=== PATIENT | male | born 1930 | race Caucasian/White ===

== ENCOUNTER → 2016-08-12 | Outpatient (CLI) | payer MEDICARE, BC ==
[2016-08-12 15:10] LABS: Appearance,Urine Clear (Clear); Bilirubin,Urine Negative (Negative); Glucose,Urine (UA) Negative (Negative); Ketones,Urine Negative (Negative); Leukocyte Esterase,Urine Negative (Negative); Nitrite,Urine Negative (Negative); PH, Urine 5.5 (5.0-8.0); Protein,Urine Negative (Negative); Specific Gravity,Urine 1.012 (1.001-1.035); UA Billing (MACRO vs. MICRO) CHEM; Urobilinogen,Urine <2.0 mg/dL (<2.0)
[2016-08-12 15:21] LABS: Anion Gap 10 mmol/L; Blood Urea Nitrogen 33 mg/dL (9-20); Calcium 9.5 mg/dL (8.4-10.2); Carbon Dioxide 27 mmol/L (22-30); Chloride 107 mmol/L (98-107); Glucose 70 mg/dL (74-99); Iron 97 ug/dL (49-181); Non-African American GFR(MDRD) 57 (>60 ml/min/1.73 sqM); Potassium 5.8 mmol/L (3.5-5.1); Sodium 144 mmol/L (137-145)
[2016-08-12 15:23] LABS: Basophils % (A) 0 %; CH 31.2; Eosinophils # (A) 0.2 k/uL (0-0.7); Eosinophils % (A) 4 %; HDW 2.21; HGB 11.6 gm/dL (13.0-17.5); Luc # (Auto) 0.12; Luc % (Auto) 2; Lymphocytes # (A) 1.8 k/uL (1.0-4.8); Lymphocytes % (A) 34 %; MCH 30.1 pg (25.0-35.0); MCHC 30.6 g/dL (31.0-37.0); MCV 98.4 fL (80.0-100.0); Mean Platelet Volume 7.7; Monocytes # (A) 0.4 k/uL (0-1.0); Monocytes % (A) 8 %; Neutrophils # (A) 2.8 k/uL (1.3-7.7); Neutrophils % (A) 52 %; RBC 3.86 m/uL (4.30-5.90); RDW 13.9 % (11.5-15.5); WBC 5.5 k/uL (3.8-10.6)
[2016-08-12 15:30] LABS: % Iron Saturation 36.1 % (20-50); Total Iron Binding Capacity 269 ug/dL (261-462)
== END | disposition home or self-care (01) ==
LOC: LABWHC1 14:33
PROVIDERS: ATTEND Nurse Practitioner Family
DX: N18.3 Chronic kidney disease, stage 3 (moderate) (principal); D64.9 Anemia, unspecified; E21.3 Hyperparathyroidism, unspecified; E55.9 Vitamin D deficiency, unspecified; N39.0 Urinary tract infection, site not specified
CPT/HCPCS: 36415; 80048; 81003; 82306; 82728; 83540; 83550; 83970; 85025

== ENCOUNTER → 2017-02-10 | Outpatient (CLI) | payer MEDICARE, BC ==
[2017-02-10 14:27] LABS: Basophils % (A) 0 %; CH 32.3; CHCM 32.1; Eosinophils # (A) 0.2 k/uL (0-0.7); Eosinophils % (A) 3 %; HCT 36.9 % (39.0-53.0); HDW 2.19; HGB 11.8 gm/dL (13.0-17.5); Luc % (Auto) 2; Lymphocytes # (A) 1.4 k/uL (1.0-4.8); Lymphocytes % (A) 26 %; MCH 32.3 pg (25.0-35.0); MCV 101.1 fL (80.0-100.0); Macrocytosis Slight; Mean Platelet Volume 7.5; Monocytes # (A) 0.4 k/uL (0-1.0); Monocytes % (A) 7 %; Neutrophils # (A) 3.3 k/uL (1.3-7.7); Neutrophils % (A) 62 %; RBC 3.65 m/uL (4.30-5.90); RDW 13.5 % (11.5-15.5); WBC 5.3 k/uL (3.8-10.6); WBC (Perox) 5.86
[2017-02-10 14:34] LABS: Anion Gap 6 mmol/L; Blood Urea Nitrogen 28 mg/dL (9-20); Calcium 9.2 mg/dL (8.4-10.2); Carbon Dioxide 26 mmol/L (22-30); Chloride 106 mmol/L (98-107); Glucose 102 mg/dL (74-99); Iron 77 ug/dL (49-181); Magnesium 1.9 mg/dL (1.6-2.3); Non-African American GFR(MDRD) 57 (>60 ml/min/1.73 sqM); Potassium 5.1 mmol/L (3.5-5.1); Sodium 138 mmol/L (137-145)
[2017-02-10 14:39] LABS: Appearance,Urine Clear (Clear); Bilirubin,Urine Negative (Negative); Glucose,Urine (UA) Negative (Negative); Ketones,Urine Negative (Negative); Leukocyte Esterase,Urine Negative (Negative); Nitrite,Urine Negative (Negative); Protein,Urine Negative (Negative); Specific Gravity,Urine 1.013 (1.001-1.035); UA Billing (MACRO vs. MICRO) CHEM; Urobilinogen,Urine <2.0 mg/dL (<2.0)
[2017-02-10 14:43] LABS: % Iron Saturation 29.7 % (20-50); Total Iron Binding Capacity 259 ug/dL (261-462)
== END | disposition home or self-care (01) ==
LOC: LABWHC1 13:52
PROVIDERS: ATTEND Nurse Practitioner Family
DX: N18.3 Chronic kidney disease, stage 3 (moderate) (principal); D63.1 Anemia in chronic kidney disease; E55.9 Vitamin D deficiency, unspecified; E21.3 Hyperparathyroidism, unspecified; N39.0 Urinary tract infection, site not specified
CPT/HCPCS: 36415; 80048; 81003; 82306; 82728; 83540; 83550; 83735; 83970; 85025

== ENCOUNTER 2017-10-14 13:04 | Emergency (ER) | payer MEDICARE, BC ==
[2017-10-14 14:35] LABS: Basophils % (A) 1 %; Eosinophils % (A) 0 %; HGB 12.2 gm/dL (13.0-17.5); INR 1.1 (<1.2); Lymphocytes # (A) 1.1 k/uL (1.0-4.8); Lymphocytes % (A) 20 %; MCHC 33.1 g/dL (31.0-37.0); MCV 93.7 fL (80.0-100.0); Mean Platelet Volume 7.5; Monocytes # (A) 0.5 k/uL (0-1.0); Monocytes % (A) 9 %; Neutrophils # (A) 3.7 k/uL (1.3-7.7); Neutrophils % (A) 67 %; Partial Thromboplastin Time 23.3 sec (22.0-30.0); Platelet Count 132 k/uL (150-450); Prothrombin Time 10.9 sec (9.0-12.0); RBC 3.95 m/uL (4.30-5.90); RDW 13.1 % (11.5-15.5); WBC 5.5 k/uL (3.8-10.6)
[2017-10-14] MEDS ORDERED: MECLIZINE 25 MG TAB PO STA (14:41)
--- NOTE | 2017-10-14 14:43 | ED ---
General Adult HPI - General Chief complaint: Fall Stated complaint: fell 2x this week Time Seen by Provider: 10/14/17 13:45 Source: patient, RN notes reviewed Mode of arrival: ambulatory Limitations: no limitations - History of Present Illness Initial comments: This is an 87-year-old male presents emergency department stating that he's been off balance last 2 days he fell once yesterday and once today. Patient states today he fell back and hit his head and he has a little bit of a headache in the occipital region of his head. Patient denies any neck pain. Patient denies numbness weakness. Patient denies any chest pain palpitations difficulty breathing or shortness of breath. states the patient look like he was staggering when he walks. Patient denies any abdominal pain patient denies nausea vomiting diarrhea. Patient denies any history of vertigo. Patient denies any hearing loss or new ringing in the ears. Patient denies any near syncopal episodes. - Related Data Home Medications Medication Instructions Recorded Confirmed Aspirin EC [Ecotrin Low Dose] 81 mg PO DAILY 03/23/16 10/14/17 Lisinopril [Prinivil] 20 mg PO DAILY 03/23/16 10/14/17 Multivit-Min/FA/Lycopen/Lutein 1 tab PO DAILY 10/14/17 10/14/17 [Centrum Silver Men Tablet] Niacin 500 mg PO DAILY 10/14/17 10/14/17 Morrill-3 Fatty Acids [Morrill-3] 1,000 mg PO DAILY 10/14/17 10/14/17 Previous Rx's Medication Instructions Recorded Meclizine [Antivert] 25 mg PO TID #20 tab 10/14/17 Allergies Allergy/AdvReac Type Severity Reaction Status Date / Time No Known Allergies Allergy Verified 10/14/17 14:45 Review of Systems ROS Statement: Those systems with pertinent positive or pertinent negative responses have been documented in the HPI. ROS Other: All systems not noted in ROS Statement are negative. 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 Patient is nontoxic and well- hydrated and is in no acute distress. Patient has slight swelling to the occipital region of the scalp ENT: Neck is soft and supple. No significant lymphadenopathy is noted. Oropharynx is clear. Moist mucous membranes. Neck has full range of motion without eliciting any pain. EYES: The sclera were anicteric and conjunctiva were pink and moist. Extraocular movements were intact and pupils were equal round and reactive to light. Eyelids were unremarkable. PULMONARY: Unlabored respirations. Good breath sounds bilaterally. No audible rales rhonchi or wheezing was noted. CARDIOVASCULAR: There is a regular rate and rhythm without any murmurs gallops or rubs. ABDOMEN: Soft and nontender with normal bowel sounds. No palpable organomegaly was noted. There is no palpable pulsatile mass. SKIN: Skin is clear with no lesions or rashes and otherwise unremarkable. NEUROLOGIC: Patient is alert and oriented x3. Cranial nerves II through XII are grossly intact. Motor and sensory are also intact. Normal speech, volume and content. Symmetrical smile. Cerebellar exam bilaterally is normal MUSCULOSKELETAL: Normal extremities with adequate strength and full range of motion. No lower extremity swelling or edema. No calf tenderness. LYMPHATICS: No significant lymphadenopathy is noted PSYCHIATRIC: Normal psychiatric evaluation. Limitations: no limitations Course Vital Signs 10/14/17 10/14/17 13:45 15:54 Temperature 99.3 F Pulse Rate 64 53 L Respiratory 20 16 Rate Blood Pressure 130/62 137/63 O2 Sat by Pulse 98 98 Oximetry Medical Decision Making - Medical Decision Making CT of the brain and C-spine showed no acute abnormalities. Lab work was within normal limits. Patient got Antivert here and was not staggering when he walked. Patient will be sent home with some Antivert to see if this helps his symptoms and he will have close follow-up and walk with a cane were device to help him keep his balance. - Lab Data Result diagrams: 10/14/17 14:07 10/14/17 14:07 Lab Results 10/14/17 10/14/17 10/14/17 Range/Units 14:07 14:07 14:07 WBC 5.5 (3.8-10.6) k/uL RBC 3.95 L (4.30-5.90) m/uL Hgb 12.2 L (13.0-17.5) gm/dL Hct 37.0 L (39.0-53.0) % MCV 93.7 (80.0-100.0) fL MCH 31.0 (25.0-35.0) pg MCHC 33.1 (31.0-37.0) g/dL RDW 13.1 (11.5-15.5) % Plt Count 132 L (150-450) k/uL Neutrophils % 67 % Lymphocytes % 20 % Monocytes % 9 % Eosinophils % 0 % Basophils % 1 % Neutrophils # 3.7 (1.3-7.7) k/uL Lymphocytes # 1.1 (1.0-4.8) k/uL Monocytes # 0.5 (0-1.0) k/uL Eosinophils # 0.0 (0-0.7) k/uL Basophils # 0.0 (0-0.2) k/uL PT (9.0-12.0) sec INR (<1.2) APTT (22.0-30.0) sec Sodium 142 (137-145) mmol/L Potassium 4.6 (3.5-5.1) mmol/L Chloride 103 (98-107) mmol/L Carbon Dioxide 25 (22-30) mmol/L Anion Gap 14 mmol/L BUN 38 H (9-20) mg/dL Creatinine 1.40 H (0.66-1.25) mg/dL Est GFR (CKD-EPI)AfAm 52 (>60 ml/min/1.73 sqM) Est GFR (CKD-EPI)NonAf 45 (>60 ml/min/1.73 sqM) Glucose 106 H (74-99) mg/dL Calcium 9.1 (8.4-10.2) mg/dL Total Bilirubin 0.3 (0.2-1.3) mg/dL AST 51 (17-59) U/L ALT 26 (21-72) U/L Alkaline Phosphatase 58 (38-126) U/L CK-MB (CK-2) 2.8 H* (0.0-2.4) ng/mL Troponin I 0.027 (0.000-0.034) ng/mL Total Protein 6.3 (6.3-8.2) g/dL Albumin 4.0 (3.5-5.0) g/dL 10/14/17 Range/Units 14:07 WBC (3.8-10.6) k/uL RBC (4.30-5.90) m/uL Hgb (13.0-17.5) gm/dL Hct (39.0-53.0) % MCV (80.0-100.0) fL MCH (25.0-35.0) pg MCHC (31.0-37.0) g/dL RDW (11.5-15.5) % Plt Count (150-450) k/uL Neutrophils % % Lymphocytes % % Monocytes % % Eosinophils % % Basophils % % Neutrophils # (1.3-7.7) k/uL Lymphocytes # (1.0-4.8) k/uL Monocytes # (0-1.0) k/uL Eosinophils # (0-0.7) k/uL Basophils # (0-0.2) k/uL PT 10.9 (9.0-12.0) sec INR 1.1 (<1.2) APTT 23.3 (22.0-30.0) sec Sodium (137-145) mmol/L Potassium (3.5-5.1) mmol/L Chloride (98-107) mmol/L Carbon Dioxide (22-30) mmol/L Anion Gap mmol/L BUN (9-20) mg/dL Creatinine (0.66-1.25) mg/dL Est GFR (CKD-EPI)AfAm (>60 ml/min/1.73 sqM) Est GFR (CKD-EPI)NonAf (>60 ml/min/1.73 sqM) Glucose (74-99) mg/dL Calcium (8.4-10.2) mg/dL Total Bilirubin (0.2-1.3) mg/dL AST (17-59) U/L ALT (21-72) U/L Alkaline Phosphatase (38-126) U/L CK-MB (CK-2) (0.0-2.4) ng/mL Troponin I (0.000-0.034) ng/mL Total Protein (6.3-8.2) g/dL Albumin (3.5-5.0) g/dL Disposition Clinical Impression: Vertigo Disposition: HOME SELF-CARE Condition: Good Instructions: Vertigo (ED), Fall Prevention for Older Adults (ED) Prescriptions: Meclizine [Antivert] 25 mg PO TID #20 tab Referrals: Chai Castaneda MD [Primary Care Provider] - 1-2 days Time of Disposition: 16:39
[2017-10-14 14:47] LABS: Calcium 9.1 mg/dL (8.4-10.2); Potassium 4.6 mmol/L (3.5-5.1); Total Bilirubin 0.3 mg/dL (0.2-1.3); Total Protein 6.3 g/dL (6.3-8.2)
[2017-10-14 15:01] LABS: Troponin I 0.027 ng/mL (0.000-0.034)
[2017-10-14 15:02] LABS: Creatine Kinase MB 2.8 ng/mL (0.0-2.4)
--- NOTE | 2017-10-14 15:13 | XR ---
EXAMINATION TYPE: XR chest 2V DATE OF EXAM: 10/14/2017 COMPARISON: 01/04/2012 TECHNIQUE: PA and lateral views submitted. HISTORY: Pain FINDINGS: The lungs are clear and there is no pneumothorax, pleural effusion, or focal pneumonia. Hyperinflat ion suggests COPD and there are chronic rib deformity suggestive of remote trauma. Postsurgical cardi ac device noted. No overt failure. Hypertrophic change of the spine noted. IMPRESSION: 1. No acute process. Correlate for COPD.
--- NOTE | 2017-10-14 15:17 | CT ---
EXAMINATION TYPE: CT brain jaime quispe DATE OF EXAM: 10/14/2017 COMPARISON: 07/07/2015 HISTORY: Fall x2 this week CT DLP: 1325.[address] of the brain was performed. The ventricles, basal cisterns and sulci overlying the cerebral convexities demonstrate mild to moder ate enlargement. There is no evidence for intracranial hemorrhage or sulcal effacement. There is decreased attenuatio n about the periventricular white matter and deep white matter of both cerebral hemispheres, compatib le with chronic small vessel ischemia. No mass effects are seen. If symptoms persist consider MRI. Osseous calvarium is intact. IMPRESSION: 1. Age related atrophic and chronic small vessel ischemic change without acute intracranial process seen at this time. CT Cervical Spine: Unenhanced CT of the cervical spine was performed with bone and soft tissue window settings submitted . Coronal and sagittal reconstruction is obtained. There is normal alignment and prevertebral soft tissues. No evidence for acute cervical fracture . Scattered degenerative disc disease and spondylosis. Biapical scarring. IMPRESSION: 1. No evidence for acute fracture or subluxation of the cervical spine.
[2017-10-14] MEDS ORDERED: ACETAMINOPHEN TAB 500 MG TAB PO STA (16:58)
[2017-10-14 17:00] VITALS: BP 148/64; PULSE 56; RESP 17; TEMP 100.5
== END 2017-10-14 17:15 | disposition home or self-care (01) ==
LOC: EC 13:04
DX: R42 Dizziness and giddiness (principal); I10 Essential (primary) hypertension; Z95.0 Presence of cardiac pacemaker; Z79.82 Long term (current) use of aspirin; Z79.899 Other long term (current) drug therapy; Y92.009 Unspecified place in unspecified non-institutional (private) residence as the place of occurrence of the external cause
CPT/HCPCS: 36415; 70450; 71046; 72125; 80053; 82553; 83735; 84484; 85025; 85610; 85730; 93005; 99284

== ENCOUNTER → 2017-10-17 | Outpatient (CLI) | payer MEDICARE, BC ==
[2017-10-17 12:30] LABS: Basophils % (A) 0 %; Eosinophils # (A) 0.1 k/uL (0-0.7); Eosinophils % (A) 1 %; HCT 36.6 % (39.0-53.0); HGB 12.1 gm/dL (13.0-17.5); Lymphocytes # (A) 1.5 k/uL (1.0-4.8); Lymphocytes % (A) 30 %; MCH 31.1 pg (25.0-35.0); MCV 94.3 fL (80.0-100.0); Mean Platelet Volume 8.2; Monocytes # (A) 0.4 k/uL (0-1.0); Monocytes % (A) 8 %; Neutrophils # (A) 2.9 k/uL (1.3-7.7); Neutrophils % (A) 58 %; Platelet Count 110 k/uL (150-450); RBC 3.88 m/uL (4.30-5.90); WBC 4.9 k/uL (3.8-10.6)
[2017-10-17 12:35] LABS: Appearance,Urine Clear (Clear); Bilirubin,Urine Negative (Negative); Blood,Urine Negative (Negative); Color,Urine Yellow; Glucose,Urine (UA) Negative (Negative); Ketones,Urine Negative (Negative); Leukocyte Esterase,Urine Negative (Negative); Mucus,Urine Rare /hpf; Nitrite,Urine Negative (Negative); PH, Urine 5.5 (5.0-8.0); Protein,Urine 1+ (Negative); Specific Gravity,Urine 1.022 (1.001-1.035); Urobilinogen,Urine <2.0 mg/dL (<2.0); WBC,Urine 1 /hpf (0-5)
[2017-10-17 13:17] LABS: Magnesium 2.4 mg/dL (1.6-2.3); Potassium 4.9 mmol/L (3.5-5.1)
[2017-10-17 19:13] LABS: Iron Saturation 26.79 (15.00-50.00)
[2017-10-17 19:22] LABS: Vitamin D 25 Hydroxy 60.4 ng/mL (30.0-100.0)
[2017-10-17 19:37] LABS: Parathyroid Hormone Intact 52.6 pg/mL (14.0-72.0)
== END | disposition home or self-care (01) ==
LOC: LABWHC1 12:03
PROVIDERS: ATTEND Nurse Practitioner Family
DX: E55.9 Vitamin D deficiency, unspecified (principal); N39.0 Urinary tract infection, site not specified; N25.81 Secondary hyperparathyroidism of renal origin; D50.9 Iron deficiency anemia, unspecified; N18.3 Chronic kidney disease, stage 3 (moderate)
CPT/HCPCS: 36415; 80048; 81001; 82306; 82728; 83540; 83550; 83735; 83970; 85025

== ENCOUNTER → 2017-12-02 | Outpatient (CLI) | payer MEDICARE, BC ==
[2017-12-02 10:46] LABS: Appearance,Urine Clear (Clear); Bilirubin,Urine Negative (Negative); Blood,Urine Negative (Negative); Color,Urine Yellow; Glucose,Urine (UA) Negative (Negative); Ketones,Urine Negative (Negative); Leukocyte Esterase,Urine Negative (Negative); Nitrite,Urine Negative (Negative); Protein,Urine Negative (Negative); Specific Gravity,Urine 1.016 (1.001-1.035); Urobilinogen,Urine <2.0 mg/dL (<2.0)
[2017-12-02 10:49] LABS: Basophils % (A) 1 %; Eosinophils # (A) 0.2 k/uL (0-0.7); Eosinophils % (A) 4 %; HCT 36.7 % (39.0-53.0); HGB 11.9 gm/dL (13.0-17.5); Lymphocytes # (A) 1.2 k/uL (1.0-4.8); Lymphocytes % (A) 26 %; MCH 30.7 pg (25.0-35.0); MCHC 32.4 g/dL (31.0-37.0); Mean Platelet Volume 7.2; Monocytes # (A) 0.3 k/uL (0-1.0); Monocytes % (A) 7 %; Neutrophils # (A) 2.7 k/uL (1.3-7.7); Neutrophils % (A) 59 %; RBC 3.87 m/uL (4.30-5.90); RDW 13.2 % (11.5-15.5); WBC 4.6 k/uL (3.8-10.6)
[2017-12-02 10:53] LABS: Calcium 9.5 mg/dL (8.4-10.2); Magnesium 2.1 mg/dL (1.6-2.3); Phosphorus 3.4 mg/dL (2.5-4.5); Potassium 5.3 mmol/L (3.5-5.1); Uric Acid 6.8 mg/dL (3.5-8.5)
[2017-12-02 10:57] LABS: Platelet Count 170 k/uL (150-450)
[2017-12-02 16:11] LABS: Iron Saturation 30.71 (15.00-50.00)
[2017-12-02 16:21] LABS: Vitamin D 25 Hydroxy 58.2 ng/mL (30.0-100.0)
[2017-12-02 17:59] LABS: Parathyroid Hormone Intact 32.7 pg/mL (14.0-72.0)
== END | disposition home or self-care (01) ==
LOC: LABWHC1 10:01
PROVIDERS: ATTEND Internal Medicine Nephrology
DX: N39.0 Urinary tract infection, site not specified (principal); M10.9 Gout, unspecified; E83.39 Other disorders of phosphorus metabolism; E55.9 Vitamin D deficiency, unspecified; D63.1 Anemia in chronic kidney disease; N18.3 Chronic kidney disease, stage 3 (moderate)
CPT/HCPCS: 36415; 80048; 81003; 82306; 82728; 83540; 83550; 83735; 83970; 84100; 84550; 85025

== ENCOUNTER → 2018-04-17 | Outpatient (CLI) | payer MEDICARE, BC ==
[2018-04-17 13:51] LABS: Basophils % (A) 0 %; Eosinophils # (A) 0.2 k/uL (0-0.7); Eosinophils % (A) 2 %; HCT 37.4 % (39.0-53.0); HGB 11.8 gm/dL (13.0-17.5); Lymphocytes # (A) 1.3 k/uL (1.0-4.8); Lymphocytes % (A) 18 %; MCH 31.1 pg (25.0-35.0); MCHC 31.6 g/dL (31.0-37.0); MCV 98.6 fL (80.0-100.0); Mean Platelet Volume 6.8; Monocytes # (A) 0.5 k/uL (0-1.0); Monocytes % (A) 7 %; Neutrophils # (A) 5.2 k/uL (1.3-7.7); Neutrophils % (A) 71 %; Platelet Count 176 k/uL (150-450); RDW 13.3 % (11.5-15.5); WBC 7.4 k/uL (3.8-10.6)
[2018-04-17 14:07] LABS: Calcium 9.5 mg/dL (8.4-10.2); Magnesium 2.2 mg/dL (1.6-2.3); Phosphorus 3.9 mg/dL (2.5-4.5); Potassium 5.5 mmol/L (3.5-5.1); Uric Acid 6.8 mg/dL (3.5-8.5)
[2018-04-17 15:03] LABS: Appearance,Urine Clear (Clear); Bilirubin,Urine Negative (Negative); Blood,Urine Negative (Negative); Color,Urine Yellow; Glucose,Urine (UA) Negative (Negative); Ketones,Urine Negative (Negative); Leukocyte Esterase,Urine Negative (Negative); Nitrite,Urine Negative (Negative); Protein,Urine Negative (Negative); Specific Gravity,Urine 1.019 (1.001-1.035); Urobilinogen,Urine <2.0 mg/dL (<2.0)
[2018-04-17 18:10] LABS: Parathyroid Hormone Intact 47.4 pg/mL (14.0-72.0)
[2018-04-17 19:10] LABS: Iron Saturation 34.39 (15.00-50.00)
[2018-04-17 19:18] LABS: Vitamin D 25 Hydroxy 62.1 ng/mL (30.0-100.0)
== END | disposition home or self-care (01) ==
LOC: LABWHC1 12:57
PROVIDERS: ATTEND Internal Medicine Nephrology
DX: N39.0 Urinary tract infection, site not specified (principal); D63.1 Anemia in chronic kidney disease; N18.3 Chronic kidney disease, stage 3 (moderate); E55.9 Vitamin D deficiency, unspecified; E21.3 Hyperparathyroidism, unspecified; M10.9 Gout, unspecified
CPT/HCPCS: 36415; 80048; 81003; 82306; 82728; 83540; 83550; 83735; 83970; 84100; 84550; 85025

== ENCOUNTER → 2018-07-31 | Outpatient (CLI) | payer MEDICARE, BC ==
[2018-08-01 04:53] LABS: Anion Gap 7.1 mmol/L (4.00-12.00); Calcium 9.5 mg/dL (8.7-10.3); Carbon Dioxide 28.9 mmol/L (21.6-31.8); Potassium 5.3 mmol/L (3.5-5.5)
== END | disposition home or self-care (01) ==
LOC: LABWHC1 15:09
PROVIDERS: ATTEND Nurse Practitioner Family
DX: N18.3 Chronic kidney disease, stage 3 (moderate) (principal)
CPT/HCPCS: 36415; 80048

== ENCOUNTER 2018-10-03 09:17 | Inpatient (IN) | payer MEDICARE, BC ==
[2018-10-03] MEDS ORDERED: IBUPROFEN 600 MG TAB PO STA (10:01)
[2018-10-03] MEDS ORDERED: ACETAMINOPHEN IV (For NPO) 1,000 MG in EMPTY BAG 1 BAG IVPB STA (10:01)
--- NOTE | 2018-10-03 10:11 | ED ---
General Adult HPI - General Chief complaint: Fall Stated complaint: Fall Time Seen by Provider: 10/03/18 09:20 Source: patient, EMS, RN notes reviewed Mode of arrival: EMS Limitations: no limitations - History of Present Illness Initial comments: This is an 88-year-old male who presents emergency department stating that yesterday he was outside tripped and fell onto his butt. Patient states he was not injured he was able to get up and walk to the house and he felt fine. Patient states was no head injury or loss of consciousness no neck injury abelardo ent denies any extremity injury. Patient denies any injury at all. Patient states this morning he went to get out of bed and he was so weak he slid onto his butt onto the floor and was unable to get up. Patient states again there was no injury. Patient states he has just generalized weakness. Patient denies any fever chills per patient denies headache patient denies any numbness or focal weakness per patient denies any lightheadedness or near syncopal episode. Patient denies any chest pain palpitations difficulty breathing shortness of breath per patient denies any abdominal pain. Patient denies any nausea vomiting diarrhea per patient denies any dysuria hematuria urinary frequency. - Related Data Home Medications Medication Instructions Recorded Confirmed Aspirin EC [Ecotrin Low Dose] 81 mg PO DAILY 03/23/16 10/03/18 Lisinopril [Prinivil] 20 mg PO DAILY 03/23/16 10/03/18 Allergies Allergy/AdvReac Type Severity Reaction Status Date / Time No Known Allergies Allergy Verified 10/03/18 10:12 Review of Systems ROS Statement: Those systems with pertinent positive or pertinent negative responses have been documented in the HPI. ROS Other: All systems not noted in ROS Statement are negative. 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 Patient is nontoxic and well-hydrated and is in mild distress. Patient felt warm to me started his temperature is 101.5 ENT: Neck is soft and supple. No significant lymphadenopathy is noted. Oropharynx is clear. Moist mucous membranes. Neck has full range of motion without eliciting any pain. EYES: The sclera were anicteric and conjunctiva were pink and moist. Extraocular movements were intact and pupils were equal round and reactive to light. Eyelids were unremarkable. PULMONARY: Unlabored respirations. Good breath sounds bilaterally. No audible rales rhonchi or wheezing was noted. CARDIOVASCULAR: There is a regular rate and rhythm without any murmurs gallops or rubs. Femoral pulses are equal bilaterally ABDOMEN: Soft and nontender with normal bowel sounds. No palpable organomegaly was noted. There is no palpable pulsatile mass. SKIN: Skin is clear with no lesions or rashes and otherwise unremarkable. NEUROLOGIC: Patient is alert and oriented x3. Cranial nerves II through XII are grossly intact. Motor and sensory are also intact. Normal speech, volume and content. Symmetrical smile. Cerebellar exam grossly intact. MUSCULOSKELETAL: Normal extremities with adequate strength and full range of motion. No lower extremity swelling or edema. No calf tenderness. LYMPHATICS: No significant lymphadenopathy is noted PSYCHIATRIC: Normal psychiatric evaluation. Limitations: no limitations Course Vital Signs 10/03/18 10/03/18 09:23 09:53 Temperature 99.8 F H 101 F H Pulse Rate 62 Respiratory 18 Rate Blood Pressure 151/64 O2 Sat by Pulse 95 Oximetry Medical Decision Making - Medical Decision Making EKG shows normal sinus rhythm at 60 bpm TX interval is 198 QRS 146 QT interval is 48 QTC is 480. Patient's a left bundle branch block. Patient's influenza came back positive. I started the patient on Tamiflu. Patient's troponin was mildly elevated. Patient was mildly dehydrated gave the patient a fluid bolus. I spoke with Dr. Lundberg he agreed to admit the patient admitted the patient I wrote wrote admitting orders. Chest x-ray showed no acute abnormality. - Lab Data Result diagrams: 10/03/18 10:22 10/03/18 10:22 Lab Results 10/03/18 10/03/18 10/03/18 Range/Units 10:22 10:22 10:22 WBC 5.9 (3.8-10.6) k/uL RBC 3.96 L (4.30-5.90) m/uL Hgb 12.2 L (13.0-17.5) gm/dL Hct 37.7 L (39.0-53.0) % MCV 95.3 (80.0-100.0) fL MCH 30.9 (25.0-35.0) pg MCHC 32.5 (31.0-37.0) g/dL RDW 13.0 (11.5-15.5) % Plt Count 144 L (150-450) k/uL Neutrophils % 75 % Lymphocytes % 12 % Monocytes % 11 % Eosinophils % 0 % Basophils % 0 % Neutrophils # 4.4 (1.3-7.7) k/uL Lymphocytes # 0.7 L (1.0-4.8) k/uL Monocytes # 0.7 (0-1.0) k/uL Eosinophils # 0.0 (0-0.7) k/uL Basophils # 0.0 (0-0.2) k/uL PT (9.0-12.0) sec INR (<1.2) APTT (22.0-30.0) sec Sodium 136 L (137-145) mmol/L Potassium 4.5 (3.5-5.1) mmol/L Chloride 102 (98-107) mmol/L Carbon Dioxide 25 (22-30) mmol/L Anion Gap 9 mmol/L BUN 28 H (9-20) mg/dL Creatinine 1.13 (0.66-1.25) mg/dL Est GFR (CKD-EPI)AfAm 67 (>60 ml/min/1.73 sqM) Est GFR (CKD-EPI)NonAf 58 (>60 ml/min/1.73 sqM) Glucose 107 H (74-99) mg/dL Calcium 9.3 (8.4-10.2) mg/dL Total Bilirubin 0.7 (0.2-1.3) mg/dL AST 103 H (17-59) U/L ALT 48 (21-72) U/L Alkaline Phosphatase 60 (38-126) U/L Troponin I (0.000-0.034) ng/mL Total Protein 6.5 (6.3-8.2) g/dL Albumin 4.1 (3.5-5.0) g/dL Urine Color Yellow Urine Appearance Cloudy (Clear) Urine pH 5.0 (5.0-8.0) Ur Specific [place] 1.019 (1.001-1.035) Urine Protein 1+ H (Negative) Urine Glucose (UA) Negative (Negative) Urine Ketones Negative (Negative) Urine Blood Moderate H (Negative) Urine Nitrite Negative (Negative) Urine Bilirubin Negative (Negative) Urine Urobilinogen <2.0 (<2.0) mg/dL Ur Leukocyte Esterase Negative (Negative) Urine RBC 1 (0-5) /hpf Urine WBC 1 (0-5) /hpf Uric Acid Crystals Moderate H (None) /hpf Amorphous Sediment Few H (None) /hpf Urine Mucus Rare H (None) /hpf Influenza Type A RNA (Not Detectd) Influenza Type B (PCR) (Not Detectd) 10/03/18 10/03/18 10/03/18 Range/Units 10:22 10:22 10:22 WBC (3.8-10.6) k/uL RBC (4.30-5.90) m/uL Hgb (13.0-17.5) gm/dL Hct (39.0-53.0) % MCV (80.0-100.0) fL MCH (25.0-35.0) pg MCHC (31.0-37.0) g/dL RDW (11.5-15.5) % Plt Count (150-450) k/uL Neutrophils % % Lymphocytes % % Monocytes % % Eosinophils % % Basophils % % Neutrophils # (1.3-7.7) k/uL Lymphocytes # (1.0-4.8) k/uL Monocytes # (0-1.0) k/uL Eosinophils # (0-0.7) k/uL Basophils # (0-0.2) k/uL PT 11.6 (9.0-12.0) sec INR 1.1 (<1.2) APTT 22.3 (22.0-30.0) sec Sodium (137-145) mmol/L Potassium (3.5-5.1) mmol/L Chloride (98-107) mmol/L Carbon Dioxide (22-30) mmol/L Anion Gap mmol/L BUN (9-20) mg/dL Creatinine (0.66-1.25) mg/dL Est GFR (CKD-EPI)AfAm (>60 ml/min/1.73 sqM) Est GFR (CKD-EPI)NonAf (>60 ml/min/1.73 sqM) Glucose (74-99) mg/dL Calcium (8.4-10.2) mg/dL Total Bilirubin (0.2-1.3) mg/dL AST (17-59) U/L ALT (21-72) U/L Alkaline Phosphatase (38-126) U/L Troponin I 0.035 H* (0.000-0.034) ng/mL Total Protein (6.3-8.2) g/dL Albumin (3.5-5.0) g/dL Urine Color Urine Appearance (Clear) Urine pH (5.0-8.0) Ur Specific [place] (1.001-1.035) Urine Protein (Negative) Urine Glucose (UA) (Negative) Urine Ketones (Negative) Urine Blood (Negative) Urine Nitrite (Negative) Urine Bilirubin (Negative) Urine Urobilinogen (<2.0) mg/dL Ur Leukocyte Esterase (Negative) Urine RBC (0-5) /hpf Urine WBC (0-5) /hpf Uric Acid Crystals (None) /hpf Amorphous Sediment (None) /hpf Urine Mucus (None) /hpf Influenza Type A RNA Detected H (Not Detectd) Influenza Type B (PCR) Not Detected (Not Detectd) Disposition Clinical Impression: Elevated troponin, Dehydration, Influenza Disposition: ADMITTED IP TO THIS HOSP Is patient prescribed a controlled substance at d/c from ED?: No Referrals: Chai Castaneda MD [Primary Care Provider] - 1-2 days Time of Disposition: 11:53
[2018-10-03] MEDS: SODIUM CHLORIDE 0.9% 500 ML 500 ML IV SCH ×2 (10:34→12:07)
[2018-10-03 10:41] LABS: Basophils % (A) 0 %; Eosinophils % (A) 0 %; HCT 37.7 % (39.0-53.0); HGB 12.2 gm/dL (13.0-17.5); Lymphocytes # (A) 0.7 k/uL (1.0-4.8); Lymphocytes % (A) 12 %; MCH 30.9 pg (25.0-35.0); MCHC 32.5 g/dL (31.0-37.0); MCV 95.3 fL (80.0-100.0); Mean Platelet Volume 7.4; Monocytes # (A) 0.7 k/uL (0-1.0); Monocytes % (A) 11 %; Neutrophils # (A) 4.4 k/uL (1.3-7.7); Neutrophils % (A) 75 %; Platelet Count 144 k/uL (150-450); RBC 3.96 m/uL (4.30-5.90); WBC 5.9 k/uL (3.8-10.6)
[2018-10-03 10:45] LABS: INR 1.1 (<1.2); Partial Thromboplastin Time 22.3 sec (22.0-30.0); Prothrombin Time 11.6 sec (9.0-12.0)
[2018-10-03 10:54] LABS: Albumin 4.1 g/dL (3.5-5.0); Calcium 9.3 mg/dL (8.4-10.2); Potassium 4.5 mmol/L (3.5-5.1); Total Bilirubin 0.7 mg/dL (0.2-1.3); Total Protein 6.5 g/dL (6.3-8.2)
[2018-10-03 10:58] LABS: Amorphous Sediment,Urine Few /hpf; Appearance,Urine Cloudy (Clear); Bilirubin,Urine Negative (Negative); Blood,Urine Moderate (Negative); Color,Urine Yellow; Glucose,Urine (UA) Negative (Negative); Ketones,Urine Negative (Negative); Leukocyte Esterase,Urine Negative (Negative); Mucus,Urine Rare /hpf; Nitrite,Urine Negative (Negative); Protein,Urine 1+ (Negative); RBC,Urine 1 /hpf (0-5); Specific Gravity,Urine 1.019 (1.001-1.035); Uric Acid Crystals,Urine Moderate /hpf; Urobilinogen,Urine <2.0 mg/dL (<2.0); WBC,Urine 1 /hpf (0-5)
[2018-10-03] MEDS ORDERED: OSELTAMIVIR 75 MG CAP PO STA (11:40)
[2018-10-03] MEDS ORDERED: SODIUM CHLORIDE 0.9% 1,000 ML IV ONE (11:54)
--- NOTE | 2018-10-03 11:59 | XR ---
EXAMINATION TYPE: XR chest 2V DATE OF EXAM: 10/03/2018 COMPARISON: Prior chest x-ray 10/14/2017 HISTORY: Fever and weakness TECHNIQUE: Frontal and lateral views of the chest are obtained. FINDINGS: Technique somewhat expiratory. Patchy bibasilar densities present. Patient is rotated. Ther e is no pleural effusion or pneumothorax seen. The cardiac silhouette size is enlarged. The osseou s structures are intact. Coronary artery calcifications are present. The aorta is dense. Pacemaker pr esent in the left pectoral region, there are leads in the right atrium and ventricle. IMPRESSION: Probable basilar atelectasis, correlate to exclude pneumonia. Coronary artery disease, c ardiomegaly appearance could be accentuated by technique.
--- NOTE | 2018-10-03 13:52 | P.HPIM ---
History of Present Illness H&P Date: 10/03/18 Chief Complaint: Fall This is a 88-year-old male, patient of Dr. Castaneda. He has a known past medical history of hypertension , sick sinus syndrome and bradycardia with pacemaker. He presented to the emergency room after falling yesterday. Apparently he tripped and fell outside on his butt. He denies any loss of consciousness after any injury. He was able to get up and go into the house. He has felt fine. Patient reports when he woke up this morning he was more weak feeling. He tried to get out of bed and slid to the floor landing on his buttocks. He denies aga in any loss of consciousness. Patient denies any chest pain, dizziness, loss of Consciousness, shortness of breath, nausea or vomiting, bowel movement changes or urinary symptoms at any time. He does admit to having a productive cough with evidence of a fever on admission with dehydration. He had a temp of 101 BUN 28 and mildly elevated troponin of 0.035. EKG had shown normal sinus rhythm with a left bundle branch block chest x-ray showing evidence of a bilateral atelectasis. He was found to be influenza A positive and started on Tamiflu in the ER. Patient is resting comfortably in the ER. He is easily awakened and answering questions appropriately but then does fall back to sleep and states that "he is tired". Patient was also given Rocephin in the ER. urinalysis showed moderate blood with moderate uric acid crystals. Patient also given IV fluid bolus in the ER. Patient be admitted to regular medical floor for IV fluids and started on Tamiflu for his influenza infection. Review of Systems Please refer to HPI otherwise unremarkable Past Medical History Past Medical History: Hypertension Additional Past Medical History / Comment(s): SSS, bradycardia, kidney stones History of Any Multi-Drug Resistant Organisms: None Reported Past Surgical History: Adenoidectomy, Joint Replacement, Pacemaker, Tonsillectomy Additional Past Surgical History / Comment(s): NIKOLAS, left hip replacement; bilateral cataract removals with lens implants, EGD, colonoscopies Past Anesthesia/Blood Transfusion Reactions: No Reported Reaction Type of Cardiac Device: Permanent Pacemaker Device Placement Date:: 2008 Past Psychological History: No Psychological Hx Reported Additional Psychological History / Comment(s): Pt resides with his spouse, Laron. He uses no assistive device. He drives. Smoking Status: Never smoker Past Alcohol Use History: Occasional, Rare Past Drug Use History: None Reported - Past Family History Father Family Medical History: No Reported History Additional Family Medical History / Comment(s): Father was healthy and at the age of 84 yrs. Mother Family Medical History: No Reported History Additional Family Medical History / Comment(s): Mother was healthy and at the age of 88yrs Medications and Allergies Home Medications Medication Instructions Recorded Confirmed Type Aspirin EC [Ecotrin Low Dose] 81 mg PO DAILY 03/23/16 10/03/18 History Lisinopril [Prinivil] 20 mg PO DAILY 03/23/16 10/03/18 History Allergies Allergy/AdvReac Type Severity Reaction Status Date / Time No Known Allergies Allergy Verified 10/03/18 10:12 Physical Exam Vitals: Vital Signs Temp Pulse Resp BP Pulse Ox 10/03/18 13:00 49 L 18 110/48 93 L 10/03/18 12:10 98.8 F 56 L 18 117/52 96 10/03/18 09:53 101 F H 10/03/18 09:23 99.8 F H 62 18 151/64 95 Intake and Output 10/02/18 10/03/18 10/03/18 22:59 06:59 14:59 Other: Weight 73.482 kg Head normocephalic Neck supple Lungs clear to auscultation bilaterally no wheezing or crackles. Slightly diminished bilaterally Heart regular rate and rhythm S1-S2, no rub or gallop Abdomen is soft nontender nondistended positive bowel sounds no hepatosplenomegaly Extremities no edema Neuro patient is sleepy. But easily awoken and answering questions appropriately. Results CBC & Chem 7: 10/03/18 10:22 10/03/18 10:22 Labs: Abnormal Lab Results - Last 24 Hours (Table) 10/03/18 10/03/18 10/03/18 Range/Units 10:22 10:22 10:22 RBC 3.96 L (4.30-5.90) m/uL Hgb 12.2 L (13.0-17.5) gm/dL Hct 37.7 L (39.0-53.0) % Plt Count 144 L (150-450) k/uL Lymphocytes # 0.7 L (1.0-4.8) k/uL Sodium 136 L (137-145) mmol/L BUN 28 H (9-20) mg/dL Glucose 107 H (74-99) mg/dL AST 103 H (17-59) U/L Troponin I (0.000-0.034) ng/mL Urine Protein 1+ H (Negative) Urine Blood Moderate H (Negative) Uric Acid Crystals Moderate H (None) /hpf Amorphous Sediment Few H (None) /hpf Urine Mucus Rare H (None) /hpf Influenza Type A RNA (Not Detectd) 10/03/18 10/03/18 Range/Units 10:22 10:22 RBC (4.30-5.90) m/uL Hgb (13.0-17.5) gm/dL Hct (39.0-53.0) % Plt Count (150-450) k/uL Lymphocytes # (1.0-4.8) k/uL Sodium (137-145) mmol/L BUN (9-20) mg/dL Glucose (74-99) mg/dL AST (17-59) U/L Troponin I 0.035 H* (0.000-0.034) ng/mL Urine Protein (Negative) Urine Blood (Negative) Uric Acid Crystals (None) /hpf Amorphous Sediment (None) /hpf Urine Mucus (None) /hpf Influenza Type A RNA Detected H (Not Detectd) Thrombosis Risk Factor Assmnt - Choose All That Apply Any of the Below Risk Factors Present?: Yes Other Risk Factors: Yes Each Risk Factor Represents 3 Points: Age 75 years or older Other congenital or acquired thrombophilia - If yes, enter type in comment: No Thrombosis Risk Factor Assessment Total Risk Factor Score: 3 Thrombosis Risk Factor Assessment Level: Moderate Risk Assessment and Plan Assessment: 1. Generalized weakness with fall likely secondary to influenza A infection and dehydration. Lactic normal at 1.1 2. Influenza A positive: Patient started on Tamiflu 3. Dehydration likely secondary to the influenza A infection. Patient received IV fluid bolus in ER continue IV fluid hydration. BUN elevated at 28 4. Mildly elevated troponin of 0.035 possibly related to dehydration. Patient denies any chest pain. EKG normal sinus rhythm with a left bundle branch block. We'll repeat cardiac enzymes and monitor 5. Bilateral atelectasis noted on chest x-ray add incentive spirometer 6. Possible UTI await urine culture. Continue Rocephin 1 g daily 7. History of essential hypertension: We'll resume lisinopril 20 mg daily and hold for systolic blood pressure less than 120. Last BP 110/48 8. History of sick sinus syndrome and bradycardia with pacemaker 9. Elevated AST will continue with hydration and repeat labs in a.m. GI prophylaxis Protonix and DVT prophylaxis Lovenox Time with Patient: Greater than 30 (Greater than 50% of the total time spent in counseling and coordination of care.I performed an examination of the patient and discussed their management with the physician Customs Inspector. I have reviewed the Physician Customs Inspector's notes and agree with the documented findings and plan of care)
[2018-10-03] MEDS ORDERED: ONDANSETRON 4 MG/2 ML VIAL IVP PRN (13:59)
[2018-10-03 17:50] LABS: Troponin I 0.047 ng/mL (0.000-0.034)
[2018-10-03] MEDS: OSELTAMIVIR 60 MG/10 ML ORAL SYRINGE PO SCH (21:25)
[2018-10-03] MEDS: ACETAMINOPHEN TAB 325 MG TAB PO PRN (22:20)
[2018-10-03 22:57] LABS: Creatine Kinase MB 14.4 ng/mL (0.0-2.4); Troponin I 0.031 ng/mL (0.000-0.034)
[2018-10-04] MEDS: ACETAMINOPHEN TAB 325 MG TAB PO PRN ×2 (05:12→21:09)
[2018-10-04] MEDS: LISINOPRIL 20 MG TAB PO SCH (06:24)
[2018-10-04 06:55] LABS: Basophils % (A) 0 %; Eosinophils % (A) 0 %; HCT 36.6 % (39.0-53.0); HGB 11.6 gm/dL (13.0-17.5); Lymphocytes # (A) 1.3 k/uL (1.0-4.8); Lymphocytes % (A) 18 %; MCH 31.2 pg (25.0-35.0); MCHC 31.7 g/dL (31.0-37.0); MCV 98.5 fL (80.0-100.0); Mean Platelet Volume 7.5; Monocytes # (A) 0.8 k/uL (0-1.0); Monocytes % (A) 12 %; Neutrophils # (A) 4.5 k/uL (1.3-7.7); Neutrophils % (A) 66 %; Platelet Count 127 k/uL (150-450); RBC 3.71 m/uL (4.30-5.90); WBC 6.8 k/uL (3.8-10.6)
[2018-10-04 07:08] LABS: Albumin 3.2 g/dL (3.5-5.0); Calcium 8.5 mg/dL (8.4-10.2); Potassium 3.9 mmol/L (3.5-5.1); Total Bilirubin 0.4 mg/dL (0.2-1.3); Total Protein 5.4 g/dL (6.3-8.2)
[2018-10-04] MEDS: ENOXAPARIN 40 MG/0.4 ML SYRINGE SQ SCH (09:45)
[2018-10-04] MEDS: OSELTAMIVIR 60 MG/10 ML ORAL SYRINGE PO SCH ×2 (09:45→21:04)
[2018-10-04] MEDS: FAMOTIDINE 20 MG TAB PO SCH (09:46)
[2018-10-04] MEDS: ASPIRIN 81 MG PO SCH (09:52)
--- NOTE | 2018-10-04 10:28 | P.CRDCN ---
History of Present Illness Consult date: 10/04/18 Requesting physician: Tristen Lundberg Reason for Consult (text): abnormal troponin Chief complaint: fall History of present illness: This is a pleasant 88-year-old gentleman with history of hypertension, history of prior pacemaker implantation, he follows with Dr. Hai Kebede in the office. He presented to the hospital on this occasion after 2 episodes of fall. His first occasion he states he was walking down his driveway, he tripped and fell. He was able to get up and go into the house, later that evening, patient tried to get up out of his bed and again fell down, this time he states he could not get himself up. He did stay on the ground for several hours before calling the EMS in the morning. According to the patient, he denied any dizziness or lightheadedness, he did not lose consciousness. For this reason he came to the emergency room for further evaluation. Patient was found to be positive for influenza A and was started on Tamiflu on admission here. He does state that he has had a cough, nonproductive, no fever or chills at home, no body aches. Chest x-ray on admission here revealed probable basilar atelectasis, correlate to exclude pneumonia. EKG shows normal sinus rhythm with a left bundle-branch block pattern and nonspecific ST-T wave changes. Blood pressure 150/60 on arrival, heart rate in the 60s, temperature did go up to 101.0. Blood pressure this morning 185/85 heart rate in the 60s, 97% on room air, continues to have a low-grade temperature of 99.5 this morning. Laboratory data was reviewed, white blood cell count 6.8, hemoglobin 11.6 Zoltan platelet count 127. Sodium 136, potassium 3.9, BUN 33 and creatinine 1.1. CK 6400, 8383, troponin 0.035, 0.047, 0.031. At the time of my examination this morning, patient denies any chills, n o body aches, he does have a cough, nonproductive. Past Medical History Past Medical History: Hypertension Additional Past Medical History / Comment(s): SSS, bradycardia, kidney stones History of Any Multi-Drug Resistant Organisms: None Reported Past Surgical History: Adenoidectomy, Joint Replacement, Pacemaker, Tonsillectomy Additional Past Surgical History / Comment(s): NIKOLAS, left hip replacement; bilateral cataract removals with lens implants, EGD, colonoscopies Past Anesthesia/Blood Transfusion Reactions: No Reported Reaction Type of Cardiac Device: Permanent Pacemaker Device Placement Date:: 2008 Past Psychological History: No Psychological Hx Reported Additional Psychological History / Comment(s): Pt resides with his spouse, Laron. He uses no assistive device. He drives. Smoking Status: Never smoker Past Alcohol Use History: Occasional, Rare Past Drug Use History: None Reported - Past Family History Father Family Medical History: No Reported History Additional Family Medical History / Comment(s): Father was healthy and at the age of 84 yrs. Mother Family Medical History: No Reported History Additional Family Medical History / Comment(s): Mother was healthy and at the age of 88yrs Medications and Allergies Home Medications Medication Instructions Recorded Confirmed Type Aspirin EC [Ecotrin Low Dose] 81 mg PO DAILY 03/23/16 10/03/18 History Lisinopril [Prinivil] 20 mg PO DAILY 03/23/16 10/03/18 History Allergies Allergy/AdvReac Type Severity Reaction Status Date / Time No Known Allergies Allergy Verified 10/03/18 10:12 Physical Exam Vitals: Vital Signs Temp Pulse Pulse Resp BP BP Pulse Ox 10/04/18 04:00 99.5 F 65 17 185/85 97 10/03/18 23:52 60 17 10/03/18 23:48 99.6 F 60 17 160/71 95 10/03/18 20:00 98.9 F 62 17 189/79 95 10/03/18 17:00 58 L 18 155/67 98 10/03/18 16:20 49 L 16 144/55 98 10/03/18 15:00 49 L 16 128/54 95 10/03/18 14:00 49 L 18 121/57 96 10/03/18 13:00 49 L 18 110/48 93 L 10/03/18 12:10 98.8 F 56 L 18 117/52 96 Intake and Output 10/03/18 10/04/18 10/04/18 22:59 06:59 14:59 Intake Total 200 1525 Output Total 900 Balance -700 1525 Intake: Intake, IV Titration 825 Amount Sodium Chloride 0.9% 1, 825 000 ml @ 75 mls/hr IV . [id number] ONE Rx#:[id number] Oral 200 700 Output: Urine 900 Other: Voiding Method Toilet Toilet Urinal Urinal # Voids 1 1 1 Weight 74.1 kg PHYSICAL EXAMINATION: GENERAL: 88-year-old gentleman in no acute distress at the time of my examination HEENT: Head is atraumatic, normocephalic. Pupils equal, round. Sclera anicteric. Conjunctiva are clear. Mucous membranes of the mouth are moist. Neck is supple. There is no elevated jugular venous pressure. No carotid bruit is heard. HEART EXAMINATION: Heart S1, S2 normal. No murmur or gallop heard. CHEST EXAMINATION: Lungs reveal scattered rhonchi throughout. ABDOMEN: Soft, nontender. Bowel sounds are heard. No organomegaly noted. EXTREMITIES: 2+ peripheral pulses with no evidence of peripheral edema and no calf tenderness noted. NEUROLOGIC patient is awake, alert and oriented 3. . Results 10/04/18 06:14 10/04/18 06:14 Cardiac Enzymes 10/03/18 10/03/18 10/03/18 Range/Units 10:22 10:22 16:22 AST 103 H (17-59) U/L CK-MB (CK-2) 14.0 H (0.0-2.4) ng/mL Troponin I 0.035 H* 0.047 H* (0.000-0.034) ng/mL 10/03/18 10/04/18 Range/Units 21:59 06:14 AST 175 H (17-59) U/L CK-MB (CK-2) 14.4 H (0.0-2.4) ng/mL Troponin I 0.031 (0.000-0.034) ng/mL Coagulation 10/03/18 Range/Units 10:22 PT 11.6 (9.0-12.0) sec APTT 22.3 (22.0-30.0) sec CBC 10/03/18 10/04/18 Range/Units 10:22 06:14 WBC 5.9 6.8 (3.8-10.6) k/uL RBC 3.96 L 3.71 L (4.30-5.90) m/uL Hgb 12.2 L 11.6 L (13.0-17.5) gm/dL Hct 37.7 L 36.6 L (39.0-53.0) % Plt Count 144 L 127 L (150-450) k/uL Comprehensive Metabolic Panel 10/03/18 10/04/18 Range/Units 10:22 06:14 Sodium 136 L 136 L (137-145) mmol/L Potassium 4.5 3.9 (3.5-5.1) mmol/L Chloride 102 108 H (98-107) mmol/L Carbon Dioxide 25 22 (22-30) mmol/L BUN 28 H 33 H (9-20) mg/dL Creatinine 1.13 1.15 (0.66-1.25) mg/dL Glucose 107 H 85 (74-99) mg/dL Calcium 9.3 8.5 (8.4-10.2) mg/dL AST 103 H 175 H (17-59) U/L ALT 48 66 (21-72) U/L Alkaline Phosphatase 60 47 (38-126) U/L Total Protein 6.5 5.4 L (6.3-8.2) g/dL Albumin 4.1 3.2 L (3.5-5.0) g/dL Current Medications Generic Name Dose Route Start Last Admin Trade Name Freq PRN Reason Stop Dose Admin Acetaminophen 650 mg 10/03/18 11:56 10/04/18 05:12 Tylenol Tab PO 650 mg Q6HR PRN Administration Fever and/ or Pain Aspirin 81 mg 10/04/18 09:00 10/04/18 09:52 Aspirin PO 81 mg DAILY MARICRUZ Administration Enoxaparin Sodium 40 mg 10/04/18 09:00 10/04/18 09:45 Lovenox SQ 40 mg DAILY MARICRUZ Administration Famotidine 20 mg 10/04/18 09:00 10/04/18 09:46 Pepcid PO 20 mg DAILY MARICRUZ Administration Ceftriaxone Sodium 1 gm/ 50 mls @ 100 mls/hr 10/04/18 09:00 10/04/18 09:46 Sodium Chloride IVPB 100 mls/hr Q24HR MARICRUZ Administration Sodium Chloride 1,000 mls @ 100 mls/hr 10/04/18 10:00 Saline 0.9% IV .Q10H MARICRUZ Lisinopril 20 mg 10/04/18 09:00 10/04/18 06:24 Zestril PO 20 mg DAILY MARICRUZ Administration Ondansetron HCl 4 mg 10/03/18 13:59 Zofran IVP Q6HR PRN Vomiting Oseltamivir Phosphate 30 mg 10/03/18 21:00 10/04/18 09:45 Tamiflu PO 10/07/18 21:01 30 mg Q12HR MARICRUZ Administration Intake and Output 10/03/18 10/04/18 10/04/18 22:59 06:59 14:59 Intake Total 200 1525 Output Total 900 Balance -700 1525 Intake: Intake, IV Titration 825 Amount Sodium Chloride 0.9% 1, 825 000 ml @ 75 mls/hr IV . [id number] ONE Rx#:[id number] Oral 200 700 Output: Urine 900 Other: Voiding Method Toilet Toilet Urinal Urinal # Voids 1 1 1 Weight 74.1 kg 10/04/18 06:14 10/04/18 06:14 EKG Interpretations (text) EKG shows a normal sinus rhythm with a left bundle-branch block pattern and nonspecific ST-T wave changes. Assessment and Plan Plan: Assessment and plan #1 episodes of unsteadiness and fall 2 with no clear-cut syncope #2 influenza A #3 history of prior pacemaker implantation #4 bilateral atelectasis with possible pneumonia #5 hypertension, uncontrolled #6 abnormality in troponin, not consistent with acute coronary syndrome with no significant rise and fall pattern, likely secondary to sepsis Plan We will obtain an echocardiogram with Doppler study. We will also interrogate the patient's pacemaker. Continue antibiotics and Tamiflu. We will also start the patient on a beta zane along with the lisinopril he is also on to optimize blood pressure control. Further recommendations to follow. DNP note has been reviewed, I agree with a documented findings and plan of care. Patient was seen and examined.
--- NOTE | 2018-10-04 10:54 | P.PN ---
Subjective Progress Note Date: 10/04/18 This is a 88-year-old male, patient of Dr. Castaneda. He has a known past medical history of hypertension , sick sinus syndrome and bradycardia with pacemaker. He presented to the emergency room after falling yesterday. Apparently he tripped and fell outside on his butt. He denies any loss of consciousness after any injury. He was able to get up and go into the house. He has felt fine. Patient reports when he woke up this morning he was more weak feeling. He tried to get out of bed and slid to the floor landing on his buttocks. He denies again any loss of consciousness. Patient denies any chest pain, dizziness, loss of Consciousness, shortness of breath, nausea or vomiting, bowel movement c hanges or urinary symptoms at any time. He does admit to having a productive cough with evidence of a fever on admission with dehydration. He had a temp of 101 BUN 28 and mildly elevated troponin of 0.035. EKG had shown normal sinus rhythm with a left bundle branch block chest x-ray showing evidence of a bilateral atelectasis. He was found to be influenza A positive and started on Tamiflu in the ER. Patient is resting comfortably in the ER. He is easily awakened and answering questions appropriately but then does fall back to sleep and states that "he is tired". Patient was also given Rocephin in the ER. urinalysis showed moderate blood with moderate uric acid crystals. Patient also given IV fluid bolus in the ER. Patient be admitted to regular medical floor for IV fluids and started on Tamiflu for his influenza infection. On 10/04/2018 patient is alert and oriented 3. Patient reports he feels improved from yesterday. At this time patient denies chest pain or shortness br eath. Patient denies nausea vomiting or diarrhea. Patient denies any urinary burning or frequency Objective - Vital Signs Vital signs: Vital Signs Temp 99.5 F 10/04/18 04:00 Pulse 65 10/04/18 04:00 Resp 17 10/04/18 04:00 BP 185/85 10/04/18 04:00 Pulse Ox 97 10/04/18 04:00 Intake & Output 10/03/18 10/04/18 10/04/18 18:59 06:59 18:59 Intake Total 200 1525 Output Total 900 Balance -700 1525 Weight 73.482 kg 74.1 kg Intake: Intake, IV Titration 825 Amount Sodium Chloride 0.9% 1, 825 000 ml @ 75 mls/hr IV . [id number] ONE Rx#:[id number] Oral 200 700 Output: Urine 900 Other: Voiding Method Toilet Urinal # Voids 1 1 1 - Exam Head normocephalic Neck supple Lungs clear to auscultation bilaterally no wheezing or crackles. Slightly diminished bilaterally Heart regular rate and rhythm S1-S2, no rub or gallop Abdomen is soft nontender nondistended positive bowel sounds no hepatosplenomegaly Extremities no edema Neuro patient is alert and oriented 3 - Labs CBC & Chem 7: 10/04/18 06:14 10/04/18 06:14 Labs: Abnormal Lab Results - Last 24 Hours (Table) 10/03/18 10/03/18 10/03/18 Range/Units 10:22 10:22 10:22 RBC 3.96 L (4.30-5.90) m/uL Hgb 12.2 L (13.0-17.5) gm/dL Hct 37.7 L (39.0-53.0) % Plt Count 144 L (150-450) k/uL Lymphocytes # 0.7 L (1.0-4.8) k/uL Sodium 136 L (137-145) mmol/L Chloride (98-107) mmol/L BUN 28 H (9-20) mg/dL Glucose 107 H (74-99) mg/dL AST 103 H (17-59) U/L Total Creatine Kinase (55-170) U/L CK-MB (CK-2) (0.0-2.4) ng/mL Troponin I (0.000-0.034) ng/mL Total Protein (6.3-8.2) g/dL Albumin (3.5-5.0) g/dL Urine Protein 1+ H (Negative) Urine Blood Moderate H (Negative) Uric Acid Crystals Moderate H (None) /hpf Amorphous Sediment Few H (None) /hpf Urine Mucus Rare H (None) /hpf Influenza Type A RNA (Not Detectd) 10/03/18 10/03/18 10/03/18 Range/Units 10:22 10:22 16:22 RBC (4.30-5.90) m/uL Hgb (13.0-17.5) gm/dL Hct (39.0-53.0) % Plt Count (150-450) k/uL Lymphocytes # (1.0-4.8) k/uL Sodium (137-145) mmol/L Chloride (98-107) mmol/L BUN (9-20) mg/dL Glucose (74-99) mg/dL AST (17-59) U/L Total Creatine Kinase 6400 H* (55-170) U/L CK-MB (CK-2) 14.0 H (0.0-2.4) ng/mL Troponin I 0.035 H* 0.047 H* (0.000-0.034) ng/mL Total Protein (6.3-8.2) g/dL Albumin (3.5-5.0) g/dL Urine Protein (Negative) Urine Blood (Negative) Uric Acid Crystals (None) /hpf Amorphous Sediment (None) /hpf Urine Mucus (None) /hpf Influenza Type A RNA Detected H (Not Detectd) 10/03/18 10/04/18 10/04/18 Range/Units 21:59 06:14 06:14 RBC 3.71 L (4.30-5.90) m/uL Hgb 11.6 L (13.0-17.5) gm/dL Hct 36.6 L (39.0-53.0) % Plt Count 127 L (150-450) k/uL Lymphocytes # (1.0-4.8) k/uL Sodium 136 L (137-145) mmol/L Chloride 108 H (98-107) mmol/L BUN 33 H (9-20) mg/dL Glucose (74-99) mg/dL AST 175 H (17-59) U/L Total Creatine Kinase 8383 H* (55-170) U/L CK-MB (CK-2) 14.4 H (0.0-2.4) ng/mL Troponin I (0.000-0.034) ng/mL Total Protein 5.4 L (6.3-8.2) g/dL Albumin 3.2 L (3.5-5.0) g/dL Urine Protein (Negative) Urine Blood (Negative) Uric Acid Crystals (None) /hpf Amorphous Sediment (None) /hpf Urine Mucus (None) /hpf Influenza Type A RNA (Not Detectd) Microbiology - Last 24 Hours (Table) 10/03/18 10:22 Urine Culture - Preliminary Urine,Voided Assessment and Plan Assessment: 1. Generalized weakness with fall likely secondary to influenza A infection and dehydration. Lactic normal at 1.1. 2. Influenza A positive: Patient started on Tamiflu 3. Dehydration likely secondary to the influenza A infection. Patient received IV fluid bolus in ER continue IV fluid hydration. BUN elevated at 28 4. Mildly elevated troponin of 0.035 possibly related to dehydration. Patient denies any chest pain. EKG normal sinus rhythm with a left bundle branch block. We'll repeat cardiac enzymes and monitor 5. Bilateral atelectasis noted on chest x-ray add incentive spirometer 6. Possible UTI await urine culture. Continue Rocephin 1 g daily 7. Rhabdomyolysis. Total creatinine kinase elevated at 6400 and 8383 8. History of essential hypertension: We'll resume lisinopril 20 mg daily and hold for systolic blood pressure less than 120. At this time blood pressure on the higher side. Discussed with cardiology will likely add additional medication 9. History of sick sinus syndrome and bradycardia with pacemaker 10. Elevated AST will continue with hydration and repeat labs in a.m. GI prophylaxis Protonix and DVT prophylaxis Lovenox I performed an examination of the patient and discussed their management with the Nurse Practitioner. I have reviewed the Nurse Practitioner's notes and agree with the documented findings and plan of care
[2018-10-04] MEDS: SODIUM CHLORIDE 0.9% 1,000 ML IV SCH ×2 (11:54→22:58)
[2018-10-04] MEDS: METOPROLOL SUCCINATE (ER) 25 MG TAB.ER.24H PO SCH (11:59)
[2018-10-04] MEDS: guaiFENesin-Coden 100-10MG/5ML 10 ML CUP PO PRN (22:56)
[2018-10-05 02:16] VITALS: RESP 18
[2018-10-05 06:58] LABS: Basophils % (A) 0 %; Eosinophils % (A) 1 %; HCT 34.4 % (39.0-53.0); HGB 11.1 gm/dL (13.0-17.5); Lymphocytes # (A) 1.3 k/uL (1.0-4.8); Lymphocytes % (A) 30 %; MCH 31.1 pg (25.0-35.0); MCHC 32.1 g/dL (31.0-37.0); MCV 96.9 fL (80.0-100.0); Mean Platelet Volume 7.1; Monocytes # (A) 0.4 k/uL (0-1.0); Monocytes % (A) 8 %; Neutrophils # (A) 2.6 k/uL (1.3-7.7); Neutrophils % (A) 59 %; Platelet Count 140 k/uL (150-450); RBC 3.55 m/uL (4.30-5.90); RDW 12.9 % (11.5-15.5); WBC 4.3 k/uL (3.8-10.6)
[2018-10-05 07:15] LABS: Albumin 2.7 g/dL (3.5-5.0); Calcium 8.5 mg/dL (8.4-10.2); Potassium 3.7 mmol/L (3.5-5.1); Total Bilirubin 0.3 mg/dL (0.2-1.3); Total Protein 4.7 g/dL (6.3-8.2)
[2018-10-05] MEDS: SODIUM CHLORIDE 0.9% 1,000 ML IV SCH ×2 (08:23→20:40)
[2018-10-05] MEDS: guaiFENesin-Coden 100-10MG/5ML 10 ML CUP PO PRN ×3 (08:25→22:44)
[2018-10-05] MEDS: ENOXAPARIN 40 MG/0.4 ML SYRINGE SQ SCH (08:26)
[2018-10-05] MEDS: FAMOTIDINE 20 MG TAB PO SCH (08:26)
[2018-10-05] MEDS: ASPIRIN 81 MG PO SCH (08:26)
[2018-10-05] MEDS: LISINOPRIL 20 MG TAB PO SCH (08:26)
[2018-10-05] MEDS: METOPROLOL SUCCINATE (ER) 25 MG TAB.ER.24H PO SCH (08:26)
[2018-10-05] MEDS: OSELTAMIVIR 60 MG/10 ML ORAL SYRINGE PO SCH ×2 (08:28→20:40)
--- NOTE | 2018-10-05 11:07 | P.PN ---
Subjective Progress Note Date: 10/05/18 This is a 88-year-old gentleman with history of hypertension and a prior permanent pacemaker implantation who came to the hospital with 2 episodes of fall. There doesn't seem to be any loss of consciousness. There doesn't seem in any episodes of dizziness. Since admission patient was found to be positive for flu. His CPKs are elevated. His creatinine is 1.1. Troponin values were mildly elevated but not consistent with the acute myocardial injury pattern. Chest x-ray showed A. tach. This is possible pneumonia. Patient is feeling better today. Patient has been receiving IV fluids. His blood pressures have been running fairly well. There does seem to be in postural hypotension with a 20 mm drop in blood pressure. Patient is advised to have knee high stockings. We'll continue current medical therapy. Waiting for echo Doppler study. Permanent pacemaker also to be evaluated. Lab values today showed white count of 4.3. Hemoglobin is 11.1. Rectal Lites are within normal limits. His CPKs 5000. GENERAL EXAM: Patient is alert and oriented and doesn't appear to be in any acute distress HEENT: Normocephalic. Normal reaction of pupils, equal size, normal range of extraocular motion. No erythema or exudates in the throat. NECK: No masses, no nuchal rigidity. CHEST: No chest wall deformity. LUNGS: Equal air entry with no crackles or wheeze. HEART: S1 and S2 normal with no audible mumurs or gallops. Regular rhythm, femorals equal on both sides.. ABDOMEN: No hepatosplenomegaly, normal bowel sounds, no guarding or rigidity. SKIN: No rashes CENTRAL NERVOUS SYSTEM: No focal deficits. EXTREMITIES: No cyanosis, clubbing or edema. Final impression #1. Recurrent falls. Could be secondary to postural hypotension #2. Postural hypotension #3. History of permanent pacemaker impla ntation. #4. Abnormal troponin values. #5. Rhabdomyolysis. Plan continue with IV fluids.Knee high stockings. Increase activity as tolerated Objective - Vital Signs Vital signs: Vital Signs Temp 98.1 F 10/05/18 07:30 Pulse 59 L 10/05/18 10:43 Resp 18 10/05/18 07:30 BP 158/67 10/05/18 10:43 Pulse Ox 96 10/05/18 08:38 Intake & Output 10/04/18 10/05/1810/05/19 18:59 06:59 18:59 Intake Total 730 300 240 Output Total 400 950 Balance 330 -650 240 Weight 75.3 kg Intake: Intake, IV Titration 500 300 Amount Sodium Chloride 0.9% 1, 500 300 000 ml @ 100 mls/hr IV . Q10H [facility] Rx#:[id number] Oral 230 240 Output: Urine 400 950 Other: Voiding Method Toilet Urinal # Voids 1 1 - Labs CBC & Chem 7: 10/05/18 06:25 10/05/18 06:25 Labs: Abnormal Lab Results - Last 24 Hours (Table) 10/05/18 10/05/18 10/05/18 Range/Units 06:25 06:25 06:25 RBC 3.55 L (4.30-5.90) m/uL Hgb 11.1 L (13.0-17.5) gm/dL Hct 34.4 L (39.0-53.0) % Plt Count 140 L (150-450) k/uL Chloride 111 H (98-107) mmol/L BUN 27 H (9-20) mg/dL AST 169 H (17-59) U/L Creatine Kinase 5157 H* (55-170) U/L Total Protein 4.7 L (6.3-8.2) g/dL Albumin 2.7 L (3.5-5.0) g/dL Microbiology - Last 24 Hours (Table) 10/03/18 10:22 Urine Culture - Final Urine,Voided 10/03/18 11:29 Blood Culture - Preliminary Blood No Growth after 24 hours
--- NOTE | 2018-10-05 12:39 | ECHOF ---
Referral Reason:Chest pain and cardiomyopathy MEASUREMENTS -------- HEIGHT: 165.1 cm WEIGHT: 75.3 kg BP: 158/69 RVIDd: 3.1 cm (< 3.3) IVSd: 1.2 cm (0.6 - 1.1) LVIDd: 4.0 cm (3.9 - 5.3) LVPWd: 1.2 cm (0.6 - 1.1) IVSs: 1.7 cm LVIDs: 2.6 cm LVPWs: 1.5 cm LA Diam: 3.3 cm (2.7 - 3.8) LAESV Index (A-L): 46.41 ml/m Ao Diam: 3.7 cm (2.0 - 3.7) AV Cusp: 1.9 cm (1.5 - 2.6) MV EXCURSION: 17.245 mm (> 18.000) MV EF SLOPE: 40 mm/s (70 - 150) EPSS: 0.6 cm MV E Abdulaziz: 0.90 m/s MV DecT: 245 ms MV A Abdulaziz: 1.20 m/s MV E/A Ratio: 0.75 RAP: 5.00 mmHg RVSP: 36.33 mmHg FINDINGS -------- Sinus rhythm. This was a technically adequate study. The left ventricular size is normal. There is borderline concentric left ventricular hypertrophy. Overall left ventricular systolic function is normal with, an EF between 55 - 60 %. The right ventricle is normal in size. LA is severely dilated >40 ml/m2 The right atrial size is normal. There is mild aortic valve sclerosis. Mild mitral annular calcification present. Moderate mitral regurgitation is present. [id number] tricuspid regurgitation present. There is mild pulmonary hypertension. The right ventricular systolic pressure, as measured by Doppler, is 36.33mmHg. The pulmonic valve was not well visualized. There is no pulmonic regurgitation present. The aortic root size is normal. Normal inferior vena cava with normal inspiratory collapse consistent with estimated right atrial pre ssure of 5 mmHg. There is no pericardial effusion. CONCLUSIONS -------- 1. Sinus rhythm. 2. This was a technically adequate study. 3. The left ventricular size is normal. 4. There is borderline concentric left ventricular hypertrophy. 5. Overall left ventricular systolic function is normal with, an EF between 55 - 60 %. 6. LA is severely dilated >40 ml/m2 7. There is mild aortic valve sclerosis. 8. Mild mitral annular calcification present. 9. Moderate mitral regurgitation is present. 10. Zshx-bh-[id number] tricuspid regurgitation present. 11. There is mild pulmonary hypertension. 12. The pulmonic valve was not well visualized. 13. There is no pulmonic regurgitation present. 14. The aortic root size is normal. 15. Normal inferior vena cava with normal inspiratory collapse consistent with estimated right atrial pressure of 5 mmHg. 16. There is no pericardial effusion. CUSTOMER [employer]AC[employer]IES SUPERVISOR: Celia Carrington RDCS
--- NOTE | 2018-10-05 13:35 | P.PN ---
Subjective Progress Note Date: 10/05/18 This is a 88-year-old male, patient of Dr. Castaneda. He has a known past medical history of hypertension , sick sinus syndrome and bradycardia with pacemaker. He presented to the emergency room after falling yesterday. Apparently he tripped and fell outside on his butt. He denies any loss of consciousness after any injury. He was able to get up and go into the house. He has felt fine. Patient reports when he woke up this morning he was more weak feeling. He tried to get out of bed and slid to the floor landing on his buttocks. He denies again any loss of consciousness. Patient denies any chest pain, dizziness, loss of Consciousness, shortness of breath, nausea or vomiting, bowel movement c hanges or urinary symptoms at any time. He does admit to having a productive cough with evidence of a fever on admission with dehydration. He had a temp of 101 BUN 28 and mildly elevated troponin of 0.035. EKG had shown normal sinus rhythm with a left bundle branch block chest x-ray showing evidence of a bilateral atelectasis. He was found to be influenza A positive and started on Tamiflu in the ER. Patient is resting comfortably in the ER. He is easily awakened and answering questions appropriately but then does fall back to sleep and states that "he is tired". Patient was also given Rocephin in the ER. urinalysis showed moderate blood with moderate uric acid crystals. Patient also given IV fluid bolus in the ER. Patient be admitted to regular medical floor for IV fluids and started on Tamiflu for his influenza infection. On 10/04/2018 patient is alert and oriented 3. Patient reports he feels improved from yesterday. At this time patient denies chest pain or shortness br eath. Patient denies nausea vomiting or diarrhea. Patient denies any urinary burning or frequency 10/05/2018 patient reports feeling better. He is remains on IV fluids. CPK levels are trending down currently to 5000. Urine culture grew contaminant. He was orthostatic positive again on fluids ADRI hose ordered by cardiology. Patient has been up and ambulating working with physical therapy. He is and see to be discharged home. Patient denies any chest pain or shortness of breath. Denies any nausea or vomiting. Reports having bowel movements. Denies any difficulty urinating. Upon further discussion with patient he does now report that he was on the ground for possibly 6 hours after his fall from his bed when he came into the hospital. And likely this is what's contributed to his acute rhabdomyolysis. Objective - Vital Signs Vital signs: Vital Signs Temp 99.0 F 10/05/18 11:55 Pulse 55 L 10/05/18 11:55 Resp 18 10/05/18 11:55 BP 195/77 10/05/18 11:55 Pulse Ox 100 10/05/18 11:55 Intake & Output 10/04/18 10/05/18 10/05/18 18:59 06:59 18:59 Intake Total 730 300 462 Output Total 400 950 500 Balance 330 -650 -38 Weight 75.3 kg Intake: Intake, IV Titration 500 300 Amount Sodium Chloride 0.9% 1, 500 300 000 ml @ 100 mls/hr IV . Q10H [facility] Rx#:[id number] Oral 230 462 Output: Urine 400 950 500 Other: Voiding Method Toilet Urinal # Voids 1 1 - Exam Head normocephalic Neck supple Lungs clear to auscultation bilaterally no wheezing or crackles Heart regular rate and rhythm S1-S2, no rub or gallop Abdomen is soft nontender nondistended positive bowel sounds no hepatosplenomegaly Extremities no edema Neuro alert and orientated to 3 - Labs CBC & Chem 7: 10/05/18 06:25 10/05/18 06:25 Labs: Abnormal Lab Results - Last 24 Hours (Table) 10/05/18 10/05/18 10/05/18 Range/Units 06:25 06:25 06:25 RBC 3.55 L (4.30-5.90) m/uL Hgb 11.1 L (13.0-17.5) gm/dL Hct 34.4 L (39.0-53.0) % Plt Count 140 L (150-450) k/uL Chloride 111 H (98-107) mmol/L BUN 27 H (9-20) mg/dL AST 169 H (17-59) U/L Creatine Kinase 5157 H* (55-170) U/L Total Protein 4.7 L (6.3-8.2) g/dL Albumin 2.7 L (3.5-5.0) g/dL Microbiology - Last 24 Hours (Table) 10/03/18 10:22 Urine Culture - Final Urine,Voided 10/03/18 11:29 Blood Culture - Preliminary Blood No Growth after 24 hours Assessment and Plan Assessment: 1. Generalized weakness with fall likely secondary to influenza A infection and dehydration and orthostatic hypotension. Lactic normal at 1.1 2. Influenza A positive: Patient started on Tamiflu 3. Dehydration likely secondary to the influenza A infection. Patient received IV fluid bolus in ER continue IV fluid hydration. BUN elevated at 28 4. Mildly elevated troponin of 0.035 possibly related to dehydration. Patient denies any chest pain. EKG normal sinus rhythm with a left bundle branch block. We'll repeat cardiac enzymes and monitor 5. Bilateral atelectasis noted on chest x-ray add incentive spirometer 6. Acute rhabdomyolysis due to prolonged time on the ground after fall : Continue with IV fluids. CK levels are trending down he's currently in the 5000. We'll monitor 7. History of essential hypertension: We'll resume lisinopril 20 mg daily and hold for systolic blood pressure less than 120. Last BP 110/48 8. History of sick sinus syndrome and bradycardia with pacemaker 9. Elevated AST will continue with hydration and repeat labs in a.m. 10. Severe protein calorie malnutrition and ensure 11. Orthostatic hypotension continue IV fluids. Continue ADRI hose 12. Abnormal troponins: Seen evaluated by cardiology acute coronary syndrome ruled out. Likely related to patient's infection and dehydration 13. UTI: Ruled out we'll discontinue the Rocephin Anticipate discharge possibly tomorrow GI prophylaxis Protonix and DVT prophylaxis Lovenox I performed an examination of the patient and discussed their management with the physician Final Inspector Paper. I have reviewed the Physician Final Inspector Paper's notes and agree with the documented findings and plan of care
[2018-10-05] MEDS: ACETAMINOPHEN TAB 325 MG TAB PO PRN (22:42)
[2018-10-06] MEDS: SODIUM CHLORIDE 0.9% 1,000 ML IV SCH ×2 (03:35→11:02)
[2018-10-06 06:34] LABS: Basophils % (A) 0 %; Eosinophils # (A) 0.1 k/uL (0-0.7); Eosinophils % (A) 1 %; HCT 32.5 % (39.0-53.0); HGB 10.6 gm/dL (13.0-17.5); Lymphocytes # (A) 1.5 k/uL (1.0-4.8); Lymphocytes % (A) 32 %; MCH 31.5 pg (25.0-35.0); MCHC 32.5 g/dL (31.0-37.0); MCV 96.8 fL (80.0-100.0); Mean Platelet Volume 7.7; Monocytes # (A) 0.3 k/uL (0-1.0); Monocytes % (A) 7 %; Neutrophils # (A) 2.7 k/uL (1.3-7.7); Neutrophils % (A) 58 %; Platelet Count 125 k/uL (150-450); RBC 3.35 m/uL (4.30-5.90); RDW 12.8 % (11.5-15.5); WBC 4.7 k/uL (3.8-10.6)
[2018-10-06 06:44] LABS: Albumin 2.7 g/dL (3.5-5.0); Calcium 8.1 mg/dL (8.4-10.2); Potassium 3.7 mmol/L (3.5-5.1); Total Bilirubin 0.5 mg/dL (0.2-1.3); Total Protein 4.7 g/dL (6.3-8.2)
[2018-10-06] MEDS: FAMOTIDINE 20 MG TAB PO SCH (10:24)
[2018-10-06] MEDS: ASPIRIN 81 MG PO SCH (10:24)
[2018-10-06] MEDS: ENOXAPARIN 40 MG/0.4 ML SYRINGE SQ SCH (10:24)
[2018-10-06] MEDS: OSELTAMIVIR 60 MG/10 ML ORAL SYRINGE PO SCH (10:24)
[2018-10-06] MEDS: METOPROLOL SUCCINATE (ER) 25 MG TAB.ER.24H PO SCH (10:24)
[2018-10-06] MEDS: LISINOPRIL 20 MG TAB PO SCH (10:24)
[2018-10-06] MEDS: guaiFENesin-Coden 100-10MG/5ML 10 ML CUP PO PRN (11:02)
[2018-10-06 12:38] VITALS: BP 133/73; PULSE 63; TEMP 98.2
--- NOTE | 2018-10-06 12:41 | P.DS ---
Providers Date of admission: 10/04/18 09:47 Expected date of discharge: 10/06/18 Attending physician: Tristen Lundberg Consults: 10/03/18 18:36 Consult Physician Routine Consulting Provider: Rachel Acevedo Consult Reason/Comments: elevated troponin Do you want consulting provider notified?: Yes Primary care physician: Chai Castaneda Hospital Course: Discharge diagnosis 1. Generalized weakness with fall likely secondary to influenza A infection and dehydration and orthostatic hypotension. Lactic normal at 1.1 2. Influenza A positive: Patient started on Tamiflu continue 3 more doses 3. Dehydration likely secondary to the influenza A infection. Improved with IV fluids 4. Mildly elevated troponin of 0.035 possibly related to dehydration. Patient denies any chest pain. EKG normal sinus rhythm with a left bundle branch block. Patient seen and evaluated by cardiology 5. Bilateral atelectasis noted on chest x-ray add incentive spirometer 6. Acute rhabdomyolysis due to prolonged time on the ground after fall : Improving with IV fluids. CK at discharge is 2542. Repeat CK level in 3 days in office 7. History of essential hypertension 8. History of sick sinus syndrome and bradycardia with pacemaker 9. Mildly elevated LFTs. No abdominal pain. Recommend repeating LFTs in 3 days 10. Severe protein calorie malnutrition and ensure 11. Orthostatic hypotension continue IV fluids. Continue ADRI hose 12. Abnormal troponins: Seen evaluated by cardiology acute coronary syndrome ruled out. Likely related to patient's infection and dehydration 13. UTI: Ruled out we'll discontinue the Rocephin 14. Anemia likely related to IV fluids. No active sign of bleeding. recommend checking CBC in 3 days. Hospital course This is a 88-year-old male, patient of Dr. Castaneda. He has a known past medical history of hypertension , sick sinus syndrome and bradycardia with pacemaker. He presented to the emergency room after falling yesterday. Apparently he tripped and fell outside on his butt. He denies any loss of consciousness after any injury. He was able to get up and go into the house. He has felt fine. Patient reports when he woke up this morning he was more weak feeling. He tried to get out of bed and slid to the floor landing on his buttocks. He denies again any loss of consciousness. Patient denies any chest pain, dizziness, loss of Consciousness, shortness of breath, nausea or vomiting, bowel movement changes or urinary symptoms at any time. He does admit to having a productive cough with evidence of a fever on admission with dehydration. He had a temp of 101 BUN 28 and mildly elevated troponin of 0.035. EKG had shown normal sinus rhythm with a left bundle branch block chest x-ray showing evidence of a bilater al atelectasis. He was found to be influenza A positive and started on Tamiflu in the ER. Patient is resting comfortably in the ER. He is easily awakened and answering questions appropriately but then does fall back to sleep and states that "he is tired". Patient was also given Rocephin in the ER. urinalysis showed moderate blood with moderate uric acid crystals. Patient also given IV fluid bolus in the ER. Patient be admitted to regular medical floor for IV fluids and started on Tamiflu for his influenza infection. On 10/04/2018 patient is alert and oriented 3. Patient reports he feels improved from yesterday. At this time patient denies chest pain or shortness breath. Patient denies nausea vomiting or diarrhea. Patient denies any urinary burning or frequency 10/05/2018 patient reports feeling better. He is remains on IV fluids. CPK levels are trending down currently to 5000. Urine culture grew contaminant. He was orthostatic positive again on fluids ADRI hose ordered by cardiology. Patient has been up and ambulating working with physical therapy. He is and see to be discharged home. Patient denies any chest pain or shortness of breath. Denies any nausea or vomiting. Reports having bowel movements. Denies any difficulty urinating. Upon further discussion with patient he does now report that he was on the ground for possibly 6 hours after his fall from his bed when he came into the hospital. And likely this is what's contributed to his acute rhabdomyolysis. 10/06/2018 patient is medically stable for discharge. His generalized weakness was likely related to his influenza infection, dehydration and orthostatic hypotension. Patient was started on Tamiflu and given IV fluids. He improved well. He has been up and ambulating. And is feeling better. Encouraged patient to drink plenty of fluids. Will have patient follow-up in the office in 3 days to have a repeat CBC, CMP and CK level. Please refer to chart for any further details. I performed an examination of the patient and discussed their management with the physician Foreign Correspondent. I have reviewed the Physician Foreign Correspondent's notes and agree with the documented findings and plan of care Patient Condition at Discharge: Stable Plan - Discharge Summary Discharge Rx Participant: No New Discharge Prescriptions: New guaiFENesin-Coden 100-10MG/5ML [Robitussin AC] 5 ml PO Q6H PRN #150 ml PRN Reason: Cough Oseltamivir Phosphate [Tamiflu] 30 mg PO BID #3 capsule Metoprolol Succinate (ER) [Toprol XL] 25 mg PO DAILY #30 tab.er.24h Continue Lisinopril [Prinivil] 20 mg PO DAILY Aspirin EC [Ecotrin Low Dose] 81 mg PO DAILY Discharge Medication List Aspirin EC [Ecotrin Low Dose] 81 mg PO DAILY 03/23/16 [History] Lisinopril [Prinivil] 20 mg PO DAILY 03/23/16 [History] Metoprolol Succinate (ER) [Toprol XL] 25 mg PO DAILY #30 tab.er.24h 10/06/18 [Rx] Oseltamivir Phosphate [Tamiflu] 30 mg PO BID #3 capsule 10/06/18 [Rx] guaiFENesin-Coden 100-10MG/5ML [Robitussin AC] 5 ml PO Q6H PRN #150 ml 10/06/18 [Rx] Follow up Appointment(s)/Referral(s): Edilson Kebede MD [STAFF PHYSICIAN] - As Needed (Office will call if your future appointments change and if Dr. Kebede would like to see you before your stress test in October.) Chai Castaneda MD [Primary Care Provider] - 10/13/18 11:15 am (Tuesday) Ambulatory/Diagnostic Orders: Complete Blood Count w/diff [LAB.AMB] Time Frame: 3 Days, Location: None Selected Patient Instructions/Handouts: Dehydration (DC), Influenza (DC), Fall Prevention for Older Adults (DC) Activity/Diet/Wound Care/Special Instructions: Diet: cardiac Activity: as tolerated Discharge Disposition: HOME SELF-CARE
--- NOTE | 2018-10-06 12:53 | P.PN ---
Subjective Progress Note Date: 10/06/18 This 88-year-old gentleman was admitted to the hospital with episodes of fall. Patient was found to have influenza. Positive. Patient also had rhabdomyolysis. His troponins were elevated but not consistent with acute ID. Patient has received IV fluids. Patient had evidence of postural hypotension. This has improved. Patient is feeling better. His echo Cardigan showed normal LV function. Overall patient is stable and wants to go home. Patient will have follow-up in the office Objective - Vital Signs Vital signs: Vital Signs Temp 98.2 F 10/06/18 12:00 Pulse 63 10/06/18 12:00 Resp 18 10/06/18 12:00 BP 133/73 10/06/18 12:00 Pulse Ox 92 L 10/06/18 12:00 Intake & Output 10/05/18 10/06/18 10/06/18 18:59 06:59 18:59 Intake Total 684 100 240 Output Total 500 125 Balance 184 -25 240 Weight 77 kg Intake: Intake, IV Titration 100 Amount Sodium Chloride 0.9% 1, 100 000 ml @ 100 mls/hr IV . Q10H [facility] Rx#:[id number] Oral 684 240 Output: Urine 500 125 Other: Voiding Method Toilet Toilet Urinal Urinal # Voids 1 - Exam GENERAL EXAM: Patient is alert and oriented and doesn't appear to be in any acute distress HEENT: Normocephalic. Normal reaction of pupils, equal size, normal range of extraocular motion. No erythema or exudates in the throat. NECK: No masses, no nuchal rigidity. CHEST: No chest wall deformity. LUNGS: Equal air entry with no crackles or wheeze. HEART: S1 and S2 normal with no audible mumurs or gallops. Regular rhythm, femorals equal on both sides.. ABDOMEN: No hepatosplenomegaly, normal bowel sounds, no guarding or rigidity. SKIN: No rashes CENTRAL NERVOUS SYSTEM: No focal deficits. EXTREMITIES: No cyanosis, clubbing or edema. - Labs CBC & Chem 7: 10/06/18 06:21 10/06/18 06:21 Labs: Abnormal Lab Results - Last 24 Hours (Table) 10/06/18 10/06/18 Range/Units 06:21 06:21 RBC 3.35 L (4.30-5.90) m/uL Hgb 10.6 L (13.0-17.5) gm/dL Hct 32.5 L (39.0-53.0) % Plt Count 125 L (150-450) k/uL Chloride 113 H (98-107) mmol/L BUN 21 H (9-20) mg/dL Calcium 8.1 L (8.4-10.2) mg/dL AST 135 H (17-59) U/L ALT 76 H (21-72) U/L Creatine Kinase 2542 H* (55-170) U/L Total Protein 4.7 L (6.3-8.2) g/dL Albumin 2.7 L (3.5-5.0) g/dL Microbiology - Last 24 Hours (Table) 10/03/18 11:29 Blood Culture - Preliminary Blood No Growth after 48 hours Assessment and Plan (1) History of permanent cardiac pacemaker placement Current Visit: Yes Status: Acute Code(s): Z95.0 - PRESENCE OF CARDIAC PACEMAKER SNOMED Code(s): 381031485 (2) Dehydration Current Visit: Yes Status: Acute Code(s): E86.0 - DEHYDRATION SNOMED Code(s): 14475515 (3) Elevated troponin Current Visit: Yes Status: Acute Code(s): R74.8 - ABNORMAL LEVELS OF OTHER SERUM ENZYMES SNOMED Code(s): 144362440 (4) Rhabdomyolysis Current Visit: Yes Status: Acute Code(s): M62.82 - RHABDOMYOLYSIS SNOMED Code(s): 399746184 Plan: Continue current medical therapy. Patient could be discharged home. Follow-up in the office
== END 2018-10-06 14:22 | disposition home or self-care (01) | DRG 193 ==
LOC: EC 09:17 → 3SCARD 12:04 → OBSVTOIN 10-04 09:47
PROVIDERS: ADMIT Internal Medicine; ATTEND Internal Medicine
DX: J10.00 Influenza due to other identified influenza virus with unspecified type of pneumonia (principal); E43 Unspecified severe protein-calorie malnutrition; J98.11 Atelectasis; M62.82 Rhabdomyolysis; E86.0 Dehydration; D64.9 Anemia, unspecified; I44.7 Left bundle-branch block, unspecified; I10 Essential (primary) hypertension; I95.1 Orthostatic hypotension; R74.0 Nonspecific elevation of levels of transaminase and lactic acid dehydrogenase [LDH]; R77.9 Abnormality of plasma protein, unspecified; Z79.82 Long term (current) use of aspirin; Z79.899 Other long term (current) drug therapy; Z87.442 Personal history of urinary calculi; Z95.0 Presence of cardiac pacemaker; Z96.642 Presence of left artificial hip joint; Z98.42 Cataract extraction status, left eye; Z98.41 Cataract extraction status, right eye; Z96.1 Presence of intraocular lens; Z68.28 Body mass index [BMI] 28.0-28.9, adult; W01.0XXA Fall on same level from slipping, tripping and stumbling without subsequent striking against object, initial encounter; Y92.093 Driveway of other non-institutional residence as the place of occurrence of the external cause; Y92.003 Bedroom of unspecified non-institutional (private) residence as the place of occurrence of the external cause
CPT/HCPCS: 36415; 71046; 80053; 81001; 82550; 82553; 83605; 84484; 85025; 85610; 85730; 87040; 87086; 87502; 93005; 93306; 96361; 96365; 96367; 99285

== ENCOUNTER → 2018-10-19 | Outpatient (CLI) | payer MEDICARE, BC ==
[2018-10-19 14:31] LABS: Basophils % (A) 1 %; Eosinophils # (A) 0.1 k/uL (0-0.7); Eosinophils % (A) 2 %; HCT 35.8 % (39.0-53.0); HGB 11.1 gm/dL (13.0-17.5); Hypochromasia Moderate; Lymphocytes # (A) 1.3 k/uL (1.0-4.8); Lymphocytes % (A) 22 %; MCH 30.8 pg (25.0-35.0); MCHC 30.9 g/dL (31.0-37.0); MCV 99.6 fL (80.0-100.0); Macrocytosis Slight; Mean Platelet Volume 7.6; Monocytes # (A) 0.5 k/uL (0-1.0); Monocytes % (A) 7 %; Neutrophils # (A) 4.1 k/uL (1.3-7.7); Neutrophils % (A) 66 %; Platelet Count 247 k/uL (150-450); RDW 14.4 % (11.5-15.5); WBC 6.1 k/uL (3.8-10.6)
[2018-10-19 14:34] LABS: Appearance,Urine Clear (Clear); Bilirubin,Urine Negative (Negative); Blood,Urine Negative (Negative); Color,Urine Yellow; Glucose,Urine (UA) Negative (Negative); Hyaline Casts,Urine 3 /lpf (0-2); Ketones,Urine Negative (Negative); Leukocyte Esterase,Urine Small (Negative); Mucus,Urine Rare /hpf; Nitrite,Urine Negative (Negative); PH, Urine 5.5 (5.0-8.0); Protein,Urine Negative (Negative); RBC,Urine 1 /hpf (0-5); Specific Gravity,Urine 1.018 (1.001-1.035); Urobilinogen,Urine <2.0 mg/dL (<2.0); WBC,Urine 4 /hpf (0-5)
[2018-10-19 18:32] LABS: Iron Saturation 28.94 (15.00-50.00)
[2018-10-19 18:37] LABS: Anion Gap 3.4 mmol/L (4.00-12.00); Calcium 9.1 mg/dL (8.7-10.3); Carbon Dioxide 28.6 mmol/L (21.6-31.8); Magnesium 2.1 mg/dL (1.5-2.4); Phosphorus 3.7 mg/dL (2.4-5.1); Potassium 5.8 mmol/L (3.5-5.5); Uric Acid 7.5 mg/dL (3.7-8.7)
[2018-10-19 18:41] LABS: Vitamin D 25 Hydroxy 77.3 ng/mL (30.0-100.0)
[2018-10-19 18:59] LABS: Parathyroid Hormone Intact 62.2 pg/mL (14.0-72.0)
== END | disposition home or self-care (01) ==
LOC: LABWHC1 13:40
PROVIDERS: ATTEND Nurse Practitioner Family
DX: N39.0 Urinary tract infection, site not specified (principal); M10.9 Gout, unspecified; E21.3 Hyperparathyroidism, unspecified; E55.9 Vitamin D deficiency, unspecified; N18.3 Chronic kidney disease, stage 3 (moderate); D63.1 Anemia in chronic kidney disease
CPT/HCPCS: 36415; 80048; 81001; 82306; 82728; 83540; 83550; 83735; 83970; 84100; 84550; 85025

== ENCOUNTER 2019-02-10 19:29 | Emergency (ER) | payer MEDICARE, BC ==
--- NOTE | 2019-02-10 19:48 | ED ---
Lower Extremity Injury HPI - General Chief Complaint: Extremity Injury, Lower Stated Complaint: Leg pain Time Seen by Provider: 02/10/19 19:45 Source: patient, family, RN notes reviewed, old records reviewed Mode of arrival: ambulatory Limitations: no limitations - History of Present Illness Initial Comments: This is a 80-year-old male the ER for evaluation patient complaining of left calf and left knee discomfort. Patient did have recent hip surgery. Patient concern for DVT. Denies any trauma. Pain is back of knee, back He has no chest pain or shortness of breath no history of blood clots. Patient denies any other pain or injury. MD Complaint: knee injury (Left) -: days(s) Injury: Knee: Left Type of Injury: unknown Place: home Severity: mild Severity scale (1-10): 2 Worsens With: movement, palpation Associated Symptoms: ambulatory - Related Data Home Medications Medication Instructions Recorded Confirmed Aspirin EC [Ecotrin Low Dose] 81 mg PO DAILY 03/23/16 02/10/19 Levofloxacin [Levaquin] 500 mg PO DAILY 02/10/19 02/10/19 Losartan [Cozaar] 25 mg PO DAILY 02/10/19 02/10/19 Tamsulosin [Flomax] 0.4 mg PO DAILY 02/10/19 02/10/19 Allergies Allergy/AdvReac Type Severity Reaction Status Date / Time No Known Allergies Allergy Verified 02/10/19 20:31 Review of Systems ROS Statement: Those systems with pertinent positive or pertinent negative responses have been documented in the HPI. ROS Other: All systems not noted in ROS Statement are negative. Past Medical History Past Medical History: Hypertension Additional Past Medical History / Comment(s): SSS, bradycardia, kidney stones History of Any Multi-Drug Resistant Organisms: ESBL Date of last positivie culture/infection: 02/06/19 MDRO Source:: ESBL URINE Past Surgical History: Adenoidectomy, Joint Replacement, Pacemaker, Tonsillectomy Additional Past Surgical History / Comment(s): NIKOLAS, left hip replacement; bilateral cataract removals with lens implants, EGD, colonoscopies Past Anesthesia/Blood Transfusion Reactions: No Reported Reaction Type of Cardiac Device: Permanent Pacemaker Device Placement Date:: 2008 Past Psychological History: No Psychological Hx Reported Smoking Status: Never smoker Past Alcohol Use History: Occasional, Rare Past Drug Use History: None Reported - Past Family History Father Family Medical History: No Reported History Additional Family Medical History / Comment(s): Father was healthy and at the age of 84 yrs. Mother Family Medical History: No Reported History Additional Family Medical History / Comment(s): Mother was healthy and at the age of 88yrs General Exam Limitations: no limitations General appearance: alert, in no apparent distress Head exam: Present: atraumatic, normocephalic, normal inspection Eye exam: Present: normal appearance, PERRL, EOMI. Absent: scleral icterus, conjunctival injection, periorbital swelling ENT exam: Present: normal exam, mucous membranes moist Neck exam: Present: normal inspection. Absent: tenderness, meningismus, lymphadenopathy Respiratory exam: Present: normal lung sounds bilaterally. Absent: respiratory distress, wheezes, rales, rhonchi, stridor Cardiovascular Exam: Present: regular rate, normal rhythm, normal heart sounds. Absent: systolic murmur, diastolic murmur, rubs, gallop, clicks GI/Abdominal exam: Present: soft, normal bowel sounds. Absent: distended, tenderness, guarding, rebound, rigid Extremities exam: Present: normal inspection, full ROM, normal capillary refill. Absent: tenderness, pedal edema, joint swelling, calf tenderness Back exam: Present: normal inspection Neurological exam: Present: alert, oriented X3, CN II-XII intact Psychiatric exam: Present: normal affect, normal mood Skin exam: Present: warm, dry, intact, normal color. Absent: rash Course Vital Signs 02/10/19 02/10/19 02/10/19 19:36 19:53 21:18 Temperature 98.7 F 98.1 F Pulse Rate 55 L 56 L 58 L Respiratory 22 18 16 Rate Blood Pressure 182/68 165/70 149/67 O2 Sat by Pulse 99 96 100 Oximetry Medical Decision Making - Medical Decision Making 88 male the ER for evaluation of left knee pain found Bakers Cyst on US. Patient can be discharged - Radiology Data Radiology results: report reviewed (US LLE positive for bakers cyst), image reviewed Disposition Clinical Impression: Bakers cyst Disposition: HOME SELF-CARE Condition: Good Instructions (If sedation given, give patient instructions): Bakers Cyst (ED) Is patient prescribed a controlled substance at d/c from ED?: No Referrals: Chai Castaneda MD [Primary Care Provider] - 1-2 days
--- NOTE | 2019-02-10 20:21 | US ---
EXAMINATION TYPE: US venous doppler duplex LE LT DATE OF EXAM: 02/10/2019 8:13 PM COMPARISON: NONE CLINICAL HISTORY: Pain. SIDE PERFORMED: Left TECHNIQUE: The lower extremity deep venous system is examined utilizing real time linear array sonog dede with graded compression, doppler sonography and color-flow sonography. VESSELS IMAGED: External Iliac Vein (EIV) Common Femoral Vein Deep Femoral Vein Greater Saphenous Vein * Femoral Vein Popliteal Vein Small Saphenous Vein * Proximal Calf Veins (* superficial vessels) Left Leg: Negative for DVT Probable Gonsales's cyst measuring 4.5 x 0.8 x 2.1cm IMPRESSION: No evidence of deep venous thrombosis in the left leg. There is a popliteal cyst.
[2019-02-10 21:19] VITALS: BP 149/67; PULSE 58; RESP 16; TEMP 98.1
== END 2019-02-10 21:19 | disposition home or self-care (01) ==
LOC: EC 19:29
DX: M71.22 Synovial cyst of popliteal space [Baker], left knee (principal); I10 Essential (primary) hypertension; Z79.899 Other long term (current) drug therapy; Z79.82 Long term (current) use of aspirin; Z95.0 Presence of cardiac pacemaker; Z96.642 Presence of left artificial hip joint
CPT/HCPCS: 99284

== ENCOUNTER → 2019-07-23 | Day surgery (SDC) | payer MEDICARE, BC ==
[2019-07-20 08:57] VITALS: BMI 26.6
[~2019-07-23] MED LIST: ACETAMINOPHEN TAB 325 MG TAB PO PRN; CEPHALEXIN 500 MG CAP PO SCH; LIDOCAINE 1% INJ 10MG/ML (20 ML MDV) ONE; LIDOCAINE 1% INJ 10MG/ML (20 ML MDV) SQ ONE; SODIUM CHLORIDE 0.9% 1,000 ML IV SCH; ceFAZolin 1,000 MG in SODIUM CHLORIDE 0.9% IRRIGATIO 250 ML IRRIGATION ONE; fentaNYL (PF) 50 MCG/ML 2 ML AMP IV ONE; fentaNYL (PF) 50 MCG/ML 2 ML AMP ONE
[2019-07-23 09:53] VITALS: RESP 18; TEMP 98.1
[2019-07-23 10:08] LABS: Basophils % (A) 0 %; Eosinophils # (A) 0.3 k/uL (0-0.7); Eosinophils % (A) 4 %; HCT 38.3 % (39.0-53.0); HGB 12.4 gm/dL (13.0-17.5); Lymphocytes # (A) 2.2 k/uL (1.0-4.8); Lymphocytes % (A) 33 %; MCH 31.1 pg (25.0-35.0); MCHC 32.4 g/dL (31.0-37.0); Mean Platelet Volume 7.8; Monocytes # (A) 0.5 k/uL (0-1.0); Monocytes % (A) 8 %; Neutrophils # (A) 3.5 k/uL (1.3-7.7); Neutrophils % (A) 52 %; Platelet Count 155 k/uL (150-450); RBC 3.99 m/uL (4.30-5.90); RDW 13.6 % (11.5-15.5); WBC 6.7 k/uL (3.8-10.6)
[2019-07-23 10:17] LABS: Calcium 9.4 mg/dL (8.4-10.2); Potassium 4.1 mmol/L (3.5-5.1)
--- NOTE | 2019-07-23 11:16 | P.PCN ---
Date of Procedure: 07/23/19 Preoperative Diagnosis: History of permanent pacemaker, battery depletion Postoperative Diagnosis: the same Procedure(s) Performed: Battery replacement Description of Procedure: HISTORY: This is a 89-year-old gentleman with history of permanent pacemaker implantation was noted to have evidence of battery depletion. Patient was brought in for elective replacement. CONSENT: I have discussed the risks and benefits as related to the above mentioned procedure and both sedation/analgesia as well as necessary blood product administration. The patient has indicated understanding and acceptance of the risks of the procedure discussed. PROCEDURE: Patient was brought to the lab in a fasting state. Patient was given 25 mics of fentanyl for sedation. The skin over the existing pulse generator was infiltrated with lidocaine. An incision was made in the skin and was deepened until the pectoral fascia was exposed. Hemostasis was obtained. The existing pulse generator was pulled out of the pocket. The leads were disconne cted and were checked for thresholds. Conscious Sedation: Versed 0mg Fentanyl 25 g Duration 26minutes THRESHOLDS: ATRIAL: The minimal patient threshold is 1 V at pulse width of 0.4 with impedance of 323 ohms P-wave: 2.4 VENTRICULAR:. The minimal patient threshold was 0.75 V at pulse width of 0.4 ms. The pacing impedance was 722 ohms R-wave: 7 mV THE LEADS: ATRIAL: This is manufactured by [employer]. Model number is 5592-45 and the serial number is [id number] VENTRICULAR: This is manufactured by [employer]. Model number is 5054-58 and the serial number is [id number] THE EXPLANTED DEVICE: This is significant manufactured by [employer]. Model number is [id number] and the serial number is [id number] THE NEW DEVICE: This is manufactured by [employer]. Model number is [id number] and the serial number is [id number]. The leads were then connected to a new pulse generator. Pacemaker seems to function normally. The pocket was irrigated with antibiotics. The pocket was closed in the usual fashion. Pectoral fascia was closed with 2-0 Prolene, the subcutaneous tissue was closed with 3-0 Prolene and the skin was closed with 4-0 Prolene. Patient tolerated the procedure well . Patient will be monitored on the telemetry unit. If stable patient be discharged home tomorrow PLAN:. Continue home medication except to hold the aspirin. Continue prophylactic antibiotics FALLOW UP:. Discharge home in morning
[2019-07-23 14:22] VITALS: PULSE 50
[2019-07-23 15:56] VITALS: BP 140/58
== END ==
LOC: CATHEP 09:21
PROVIDERS: ATTEND Internal Medicine Cardiovascular Disease
DX: Z45.010 Encounter for checking and testing of cardiac pacemaker pulse generator [battery] (principal); I49.5 Sick sinus syndrome; I34.1 Nonrheumatic mitral (valve) prolapse; I10 Essential (primary) hypertension; Z79.82 Long term (current) use of aspirin; Z79.899 Other long term (current) drug therapy
CPT/HCPCS: 33228; 80048; 85025; J0690; J2001; J3010

== ENCOUNTER → 2019-11-01 | Outpatient (CLI) | payer MEDICARE, BC ==
[2019-11-01 11:45] LABS: Basophils % (A) 0 %; Eosinophils # (A) 0.2 k/uL (0-0.7); Eosinophils % (A) 4 %; HCT 39.4 % (39.0-53.0); HGB 12.8 gm/dL (13.0-17.5); Lymphocytes # (A) 1.5 k/uL (1.0-4.8); Lymphocytes % (A) 25 %; MCH 31.4 pg (25.0-35.0); MCHC 32.4 g/dL (31.0-37.0); Mean Platelet Volume 7.7; Monocytes # (A) 0.5 k/uL (0-1.0); Monocytes % (A) 8 %; Neutrophils # (A) 3.7 k/uL (1.3-7.7); Neutrophils % (A) 59 %; Platelet Count 199 k/uL (150-450); RBC 4.06 m/uL (4.30-5.90); RDW 13.4 % (11.5-15.5); WBC 6.2 k/uL (3.8-10.6)
[2019-11-01 11:51] LABS: Appearance,Urine Clear (Clear); Bilirubin,Urine Negative (Negative); Blood,Urine Negative (Negative); Color,Urine Yellow; Glucose,Urine (UA) Negative (Negative); Ketones,Urine Negative (Negative); Leukocyte Esterase,Urine Negative (Negative); Nitrite,Urine Negative (Negative); Protein,Urine Negative (Negative); Specific Gravity,Urine 1.017 (1.001-1.035); Urobilinogen,Urine <2.0 mg/dL (<2.0)
[2019-11-01 23:05] LABS: % Iron Saturation 37.19 (15.00-50.00); African American GFR (CKD) 61.8 (60.0-200.0); Anion Gap 7.8 mmol/L (4.00-12.00); BUN/Creat Ratio 26.67 Ratio (12.00-20.00); Calcium 9.7 mg/dL (8.7-10.3); Carbon Dioxide 28.2 mmol/L (21.6-31.8); Non-African American GFR(CKD) 53.3 (60.0-200.0); Potassium 4.7 mmol/L (3.5-5.5)
== END | disposition home or self-care (01) ==
LOC: LABWHC1 10:42
PROVIDERS: ATTEND Internal Medicine Nephrology
DX: N18.3 Chronic kidney disease, stage 3 (moderate) (principal); D63.1 Anemia in chronic kidney disease; E55.9 Vitamin D deficiency, unspecified; N25.81 Secondary hyperparathyroidism of renal origin; N39.0 Urinary tract infection, site not specified
CPT/HCPCS: 36415; 80048; 81003; 82306; 82728; 83540; 83550; 83735; 83970; 85025